=== PATIENT | female | born 1940 | race Caucasian/White ===

== ENCOUNTER 2017-02-09 09:40 | Inpatient (IN) | payer MEDICARE ==
[~2017-02-09] VITALS: Ht 162.6 cm; Wt 66.7 kg
[2017-02-09 09:48] VITALS: BP 115/72; PULSE 85; RESP 16; O2SAT 100
[2017-02-09] MEDS ORDERED: METF500T4 PO (10:20)
[2017-02-09] MEDS ORDERED: HYDR25TA4 PO (10:20)
[2017-02-09] MEDS ORDERED: BENA40TA2 PO (10:20)
[2017-02-09] MEDS ORDERED: LIP40 PO (10:20)
[2017-02-09] MEDS ORDERED: CARV12.5 PO (10:20)
[2017-02-09] MEDS ORDERED: ASPI-973 PO (10:20)
[2017-02-09] MEDS ORDERED: AMLO2.5T PO (10:20)
[2017-02-09] MEDS ORDERED: 0.9% Sodium Chloride 1,000 ML IV ONE ×2 (10:42→14:50)
[2017-02-09] MEDS ORDERED: Iohexol 300 mg/mL 30 mL Inj PO ONE (10:45)
[2017-02-09] MEDS ORDERED: Ondansetron 2 mg/mL 2 mL Inj IVPUSH ONE (10:45)
--- NOTE | 2017-02-09 10:47 | ED.REPORT ---
HPI-Abd Pain F 40 and Over Date of Service Feb 09, 2017 ED Provider: Bill Joseph MD A 76 year old female with h/o HTN and diabetes presents to the ED c/o left sided abdominal pain that wraps into her back onset end of November after bronchitis infection. Eating or lying on back can exacerbate the pain. She went on clear diet after the bronchitis infection, which relived the pain for some time, however the pain has been coming back intermittently since she stopped the clear diet a few months ago. Associated difficulty sleeping, weight loss (12 pounds lost since November), chills, and loss of appetite. She denies any vomit, nausea, or dysuria. She has been taking stool softener with 3 BMs today. She reports that she has not been sick in years. Nursing Notes Stated Complaint: ABDOMINAL/BACK Chief Complaint: General Complaint Nursing Notes Reviewed: Yes ([employer], [employer] reconciled) Allergies: Coded Allergies: No Known Allergies (Unverified , 02/09/17) Scheduled Amlodipine (Amlodipine) 2.5 Mg Tablet 2.5 MG PO DAILY Aspirin (Aspirin) 81 Mg Tablet 162 MG PO BID Atorvastatin (Lipitor) 40 Mg Tablet 40 MG PO DAILY Carvedilol (Coreg) 12.5 Mg Tablet 12.5 MG PO BID Hydrochlorothiazide (Hydrochlorothiazide) 25 Mg Tablet 25 MG PO DAILY Metformin (Metformin) 500 Mg Tablet 500 MG PO BID Miscellaneous Medications Benazepril (Benazepril) 40 Mg Tablet 40 MG PO General Time Seen by MD: 10:41 Chief Complaint Abdominal pain Hx Obtained From: Patient Arrived By: Walk-in Sudden in Onset?: No Onset Occurred: More than a week ago... (3 months, november) Symptom Duration: Intermittent Progression since Onset: Intermittent Radiation: : Back Severity: Current: Moderate Severity: Maximum: Severe Recent Healthcare: No recent doctor visit Similar Sx Previous: No Past Medical History Past Medical History Hypertension Diabetes type II Hyperlipidemia History of DVT or blood clot of some sort in the leg - curly on aspirin therapy only. reports blood clot 1997 and 2012, both "from traveling" bronchitis in november Denies Hx pancreatitis Past Surgical History Reports: Hysterectomy, Denies: Appendectomy, Cholecystectomy Social History Alcohol Use: "Social" (no drink in 6 months) Ambulatory Status Independent Review of Systems Difficulty sleeping Loss of appetite Constitutional: Reports: Chills, Recent wt loss GI: Reports: Abdominal pain, Denies: Constipation, Nausea, Vomiting Female: Denies: Dysuria Musculoskeletal: Reports: Back pain Complete sys rev & neg: except as marked. Physical Exam Vital Signs Vital Signs (First) Date Time Temp Pulse Resp B/P Pulse Ox O2 Delivery O2 Flow Rate FiO2 02/09/17 09:48 36.2 85 16 115/72 100 Room Air Initial VS: Reviewed, Vital signs normal General/Constitutional: Awake, Alert, No acute distress Mildly uncomftorable. Respiratory / Chest: Atraumatic, Breath sounds NL, Breath sounds = bilat, No respiratory distress, No rales, No rhonchi, No wheezing Cardiovascular: Heart rate NL, Regular rhythm, Heart sounds NL, No gallop, No murmurs, No rubs Tenderness/Guarding/Rebound: Positive: Tender epigastric (trace epigastric tenderness) No pain in RUQ. Back: Atraumatic, Inspection NL Head / Eyes: Atraumatic, Normocephalic, PERRL, EOMI ENT: Atraumatic, Airway patent Skin: Atraumatic, Color NL, Warm, Dry Neurologic: Oriented X3, Speech NL Interpretation & Diagnostics Lab Results Interpretation Result Diagram: 02/09/17 1135 02/09/17 1135 Test 02/09/17 11:35 White Blood Count 8.0th/mm3 (3.8-10.1) Red Blood Count 4.20mil/mm3 (3.90-5.20) Hemoglobin 13.5g/dL (12.0-15.6) Hematocrit 37.3% (35.0-46.0) Mean Corpuscular Volume 88.8fL (81-100) Mean Corpuscular Hemoglobin 32.1pg (27.0-35.0) Mean Corpuscular Hemoglobin Concent 36.2% (32.0-37.0) Red Cell Distribution Width 11.5% (12.3-15.4) Platelet Count 283bil/L (150-400) Neutrophils (%) (Auto) 73.3% (40-74) Lymphocytes (%) (Auto) 17.7% (14-46) Monocytes (%) (Auto) 7.8% (4-12) Eosinophils (%) (Auto) 0.6% (0-5) Basophils (%) (Auto) 0.3% (0-3) Sodium Level 121mEq/L (134-144) Potassium Level 3.0mEq/L (3.5-5.2) Chloride Level 81mEq/L (97-108) Carbon Dioxide Level 21mmol/L (18-29) Blood Urea Nitrogen 29mg/dL (8-27) Creatinine 1.00mg/dL (0.57-1.00) Estimat Glomerular Filtration Rate 77mL/min (>59) Glucose Level 149mg/dL (60-99) Calcium Level 11.2mg/dL (8.5-10.1) Magnesium Level 1.6mg/dL (1.6-2.6) Total Bilirubin 1.2mg/dL (0.0-1.2) Aspartate Amino Transf (AST/SGOT) 23U/L (0-50) Alanine Aminotransferase (ALT/SGPT) 20U/L (0-32) Alkaline Phosphatase 54U/L (25-165) Total Protein 7.4g/dL (6.4-8.4) Albumin 4.4g/dL (3.4-5.0) Lipase 49U/L (13-60) Lab Results Interpretation: CBC normal CMP mild hypokalemia moderate/severe hyponatremia Lipase normal CT Abd / Pelvis Interpretation IMPRESSION: 1. Primary pancreatic malignancy, which is exophytic and demonstrates vascular encasement, as described above. 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 Pancreatic ductal dilatation is present. 2. Pathologic periceliac adenopathy, which demonstrates vascular encasement as described above. 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 Dictated by: Brunilda Arias M.D. on 02/09/2017 at 13:48 Approved by: Brunilda Arias M.D. on 02/09/2017 at 13:57 Interpretation / Wet Read by: Interpret - Radiologist Re-Eval/Medical Decision Med Decision/Clinical Course This is a 76-year-old female presents with increasing epigastric back/back pain with worsening with eating this progressed to the point she has not had 10 pounds of weight loss, increasing weakness, she could not sleep last night due to the discomfort, has been trying to get into PCP unsuccessfully and was advised to try get to urgent cares that she get an expedited PCP and they sent her to the ED. Fevers chills prior history of some her symptoms is concerned about the possibly pancreatitis. She does not drink alcoho beyond rare wine. He has no previous history of gallbladder pathology or liver pathology. She has had no problems with pancreatitis in the past. Exam she appears fatigued, mildly dehydrated, but her abdominal exam essentially benign without focal tenderness or guarding. No clinical evidence of acute surgical abdomen is evident but she has pointed area and epigastrium for the source of her discomfort. Workup was pursued, the labs are no poor dehydration with severe hyponatremia and mild hypokalemia, and the imaging workup is suggestive of a primary pancreatic malignancy. Given her level of dehydration, electrolyte abnormalities, and need for pain management recommending admission. Hospitalist has been paged, and oncology consult is patient is being requested Source of Hx: Old records (not in EMR) Consultation #1: Referral / Consult Name: Abdelrahman Marr MD Call Returned at: 14:54 Traffic Operator: Agrees with eval Consultation #2: Referral / Consult Name: Robert Givens MD Consulted With: Hospitalist Traffic Operator: Accepts admit Differential Diagnosis: Positive: Malignancy (primary pancreatic), Negative: Abdominal aortic aneurysm, Cholangitis, Cholecystitis, Esophageal rupture, Gun shot wound abdomen, Peritonitis, Stab wound abdomen Counseled Regarding: Diagnosis, Lab results, Need for follow-up, Need for admission Discharge & Departure Primary Impression: Pancreatic cancer Additional Impressions: Abdominal pain Dehydration Hyponatremia Hypokalemia Disposition: ADMITTED TO HOSPITAL Discharge Condition All VS Reviewed: Yes Condition: Stable Referrals: MARYCRUZ EDSupervising Provider for APC: MARYCRUZ Wetzel Attestation Portions of this note were transcribed by Jett Friedman. I, Dr. Joseph personally performed the history, physical exam and medical decision-making; I reviewed and confirmed the accuracy of the information in the transcribed note. Signed by: Rashard Alejandro, 02/09/2017, [id number]. copies to: Bill Servin MD Feb 09, 2017 10:47 Jett Friedman Feb 09, 2017 10:50
[2017-02-09] MEDS ORDERED: HYDROmorphone 1 mg/mL Inj IVPUSH ONE (11:25)
[2017-02-09 11:49] VITALS: BP 132/68; PULSE 89; RESP 26; O2SAT 98
[2017-02-09 11:49] LABS: BASOPHILS % (AUTO) 0.3 % (0-3); EOSINOPHILS % (AUTO) 0.6 % (0-5); MONOCYTES % (AUTO) 7.8 % (4-12); Mean Corpuscular Hemoglobin 32.1 pg (27.0-35.0); Mean Corpuscular Volume 88.8 fL (81-100); NEUTROPHILS % (AUTO) 73.3 % (40-74); Platelet Count 283 bil/L (150-400)
[2017-02-09 12:22] LABS: Magnesium 1.6 mg/dL (1.6-2.6)
--- NOTE | 2017-02-09 13:58 | DRSVH ---
PROCEDURE: CT ABDOMEN AND PELVIS WITH CONTRAST ([id number]) INDICATIONS: LLQ Abd Pain, weight loss, anorexia x1 month TECHNIQUE: After the administration of oral and intravenous contrast, 5 mm thick sections acquired from the diap hragms to the symphysis. 5 mm thick coronal and sagittal reformats were performed. For radiation do se reduction, the following was used: automated exposure control, adjustment of mA and/or kV accordi ng to patient size. COMPARISON: None. FINDINGS: Image quality: Excellent. ABDOMEN: Lung bases: Right posterior lung base scarring. Lung bases are otherwise clear. Heart size is luke l. Solid organs: Liver and spleen are normal in size and enhancement. Gallbladder is within normal baker its. Biliary system is non-dilated. There is an ill-defined region of hypoenhancement within the inf erior aspect of the pancreatic body/neck junction, which is exophytic and extends inferiorly into the peripancreatic soft tissues. There is associated interruption of the pancreatic duct within the panc reatic neck, with associated pancreatic ductal dilatation within the body and tail, with a maximal di ameter of roughly 5 mm.. The mass demonstrates encasement and severe consequent narrowing of the supe rior aspect of the superior mesenteric vein. There is partial encasement, with moderate to high-grade narrowing of the central aspect of the splenic vein. Additionally, the exophytic portion of the mass contacts the anterior margin of the proximal superior mesenteric artery. No adrenal nodules. Kidney s are normal in size and enhancement, without hydronephrosis. Peritoneum and bowel: A small hiatal hernia is present. Stomach, small bowel, and colon loops are nor mal in caliber and wall thickness. No free fluid or air. Nodes and vessels: There is a 17 mm diameter paco-celiac lymph node, which encases the celiac artery, as well as the proximal aspects of the common hepatic and splenic arteries. There is moderate to sev ere narrowing of the distal celiac and proximal common hepatic arteries. Aorta is within normal limit s. There is calcification within the lumen of the infrarenal IVC. The common, internal, and external iliac veins are atrophic and demonstrate scattered calcifications. As described above, there is sever e narrowing of the peripancreatic segment of the superior mesenteric vein. There are multiple consequ ent portosystemic collateral vessels within the left hemiabdomen. Miscellaneous: No ventral hernias. PELVIS: Genitourinary: Bladder wall thickness is normal. Miscellaneous: No inguinal hernias or adenopathy. Collateral venous structures within the anterior subcutaneous fat. Bones: No suspicious bony lesions. No vertebral body compression fractures. IMPRESSION: 1. Primary pancreatic malignancy, which is exophytic and demonstrates vascular encasement, as describ ed above. There is associated superior mesenteric vein stenosis with consequent portosystemic collate ral vessels. Pancreatic ductal dilatation is present. 2. Pathologic periceliac adenopathy, which demonstrates vascular encasement as described above. Chron ic thrombosis of the infrarenal IVC and iliac veins. Dictated by: Brunilda Arias M.D. on 02/09/2017 at 13:48 Approved by: Brunilda Arias M.D. on 02/09/2017 at 13:57
[2017-02-09] MEDS ORDERED: Potassium Chloride 20 mEq SR Tablet PO ONE (14:55)
[2017-02-09] MEDS ORDERED: Alum-Mag Hydrox-Simeth 30 mL Suspension PO PRN (15:25)
[2017-02-09] MEDS ORDERED: Polyethylene Glycol (PEG) 17 Gm Powder PO PRN (15:25)
[2017-02-09] MEDS ORDERED: Glucose 40% Oral Gel 15 Gm Tube PO PRN (15:55)
[2017-02-09 16:15] LABS: INR 1.05 ratio
[2017-02-09 16:55] VITALS: BP 132/86; PULSE 76; RESP 20; O2SAT 98
[2017-02-09] MEDS: Insulin LISPRO 300 Unit/3 mL Inj SUBQ SCH ×2 (17:30→22:00)
[2017-02-09 17:54] VITALS: BP 149/72; PULSE 76; RESP 16; O2SAT 98
[2017-02-09] MEDS: 0.9% Sodium Chloride 1,000 ML IV SCH (17:54)
[2017-02-09] MEDS: Heparin 5,000 Unit/mL Inj SUBQ SCH (17:55)
[2017-02-09] MEDS: HYDROmorphone 1 mg/mL Inj IVPUSH PRN (19:33)
--- NOTE | 2017-02-09 19:34 | NUR ---
Admit Pt admitted to [facility], 1022, at ~1745. Arrived via gurney ambulated to bed. A&Ox3, PORTER, states pain but tolerating at this time, IV SL, Eating dinner, oriented to room/call light, Family present with belongings, Unable to perform physical assessment as MD present. Cook page at change of shift to MD re: pt home meds, sleep aide and pain medication - orders received post giving NOC RN report. Pt aware - care continues.
[2017-02-09 19:49] VITALS: BP 120/65; PULSE 79; RESP 18; O2SAT 96
--- NOTE | 2017-02-09 19:51 | CCS CONS ---
[facility] [address] [place] [id number] MEDICAL ONCOLOGY NEW PATIENT REPORT PATIENT: LANEY ANNA : 1940 MR#: [id number] DATE: 02/09/2017 JOB ID: [id number] MEDICAL ONCOLOGY CONSULTATION: DATE: 02/09/2017 REQUESTING PHYSICIAN: Bill Joseph MD from the Emergency Department. REASON FOR CONSULTATION: Pancreatic mass radiographically consistent with pancreatic cancer. HISTORY OF PRESENT ILLNESS: This patient is a 76-year-old lady who is here with her and daughter and has a history of hypertension and diabetes, and has been having epigastric pain for about two months with worsening when laying on her back or eating, and the pain radiates also laterally to the back. She did not seek any medical attention and has attributed that to different explanations, but it got to the point that she could not sleep and has lost about 15 pounds since November. Her appetite is very poor and her stools have gotten softer. She came to the emergency department today with a CAT scan of the abdomen and pelvis with contrast in the emergency department being performed. I have personally reviewed the CAT scan with Dr. Mamta Ozuna of Radiology. It shows a large ill-defined mass in the body and neck of the pancreas with exophytic extension. The mass appears to arise from within the pancreatic parenchyma with secondary distal ductal dilatation of the pancreas within the body and tail supporting a pancreatic primary. The mass encases and severely narrows the superior mesenteric vein and partial encasement and moderate narrowing of the central aspect of the splenic vein. The exophytic portion of the mass touches the anterior margin of the superior mesenteric artery but does not encase it. There is celiac lymph node enlargement measuring 1.7 cm encasing the celiac artery as well as common hepatic and splenic arteries in the celiac access causing some narrowing in the distal aspect of those vessels. There is evidence of chronic thrombus in the infrarenal aspect of the IVC and portosystemic collateral in the left hemiabdomen. No evidence of liver metastases. No ascites. PAST MEDICAL HISTORY: Hypertension, diabetes and hyperlipidemia. She reports that she has had a "blood clot" in 1997 and 2012. SOCIAL HISTORY: She lives in [facility]. Her daughter has a house on the same property. She has no history of smoking or alcoholism and no history of chronic pancreatitis. PAST SURGICAL HISTORY: Hysterectomy and appendectomy as well as cholecystectomy. REVIEW OF SYSTEMS: Positive for weight loss, epigastric and posterior back pain and symptoms of asthenia. No jaundice. No vomiting. HOME MEDICATIONS: 1. Atorvastatin. 2. Baby aspirin. 3. Carvedilol 12.5 mg b.i.d. 4. Aspirin 81 mg. 5. Metformin. 6. Hydrochlorothiazide 25 mg. 7. Amlodipine 2.5 mg daily. LABORATORY DATA: Labs show a white count 8.0, hemoglobin 13.5, platelets 283. Chemistry shows severe hyponatremia with a sodium of 121, potassium 3.0, BUN 29, creatinine 1.0. Normal LFTs. Calcium elevated at 11.2. PHYSICAL EXAMINATION: Vitals are stable. The patient afebrile. Blood pressure 149/72. A very pleasant lady. Mentally agile. Lungs clear to auscultation. Heart regular. Abdomen is soft. Extremities show no edema. No jaundice. No palpable adenopathy. ASSESSMENT AND PLAN: A 76-year-old lady with history of hypertension and diabetes with two month history of progressive epigastric and posterior back pain, weight loss and asthenia that made her come to the emergency department today with CT scan that I reviewed with Dr. Ozuna of Radiology showing a very concerning mass in the body of the pancreas with the above-mentioned compression effect on the splenic vein as well as significant narrowing and encasement of the superior mesenteric vein with a mass extending beyond the pancreas. In addition, there is adenopathy in the celiac access causing encasement of the celiac artery and narrowing of the same as well as the common hepatic vein. There is no evidence of liver metastases or ascites. The radiographic appearance is consistent with a primary pancreatic malignancy and preliminary stage based on the current CT scan would be at least a T3/? T4, N1 disease. At this point, the malignancy appears unlikely to be resectable and would require completion of staging workup and most likely neoadjuvant therapy and then re-evaluation for resectability. I discussed with the family that several additional tests need to be performed. I would recommend: 1. Please consult Dr. Hayes of Gastroenterology for expedited endoscopic ultrasound for more accurate the endosonographic staging as well as EUS guided biopsy for tissue diagnosis. 2. CT of the chest without contrast to rule out metastases and an independent primary lung process given the severity of hyponatremia. 3. CEA and CA 19-9 tumor markers as well as intact parathyroid hormone for workup of hypercalcemia. These tests were already ordered by me today. 4. More adequate pain control utilizing long-acting morphine with MS Contin 15 mg every 12 hours and Vicodin p.r.n. for breakthrough pain to be able to manage the pain as an outpatient. I have given contact information to the family for me to follow up as an outpatient. She likely can be discharged after adequate pain control and some hydration has been performed over the weekend with EUS to be performed early next week if possible. I can then also refer her to Multidisciplinary Pancreatic [facility] at [facility] for formal consultation by Surgery regarding advisability of diagnostic laparoscopy, peritoneal washing and likely initiation first with neoadjuvant chemotherapy and reassessment.
--- NOTE | 2017-02-09 20:35 | DRSVH ---
PROCEDURE: CT CHEST WITHOUT CONTRAST ([id number]) INDICATIONS: Pancreatic mass staging TECHNIQUE: Noncontrast 5 mm thick sections acquired from the pulmonary apices to the posterior costophrenic angl es. 7 mm thick coronal and sagittal MIP reformats were then acquired. For radiation dose reduction, the following was used: automated exposure control, adjustment of mA and/or kV according to patient size. COMPARISON: None. FINDINGS: Image quality: Excellent. Lungs and pleura: No acute air space opacities. 8mm diameter nodule within the right posterior apex . No pleural effusions or pneumothorax. Central and peripheral airways are patent and normal in joão nai. Mediastinum: Heart size is normal. There is calcification of the coronary vasculature. No pericardi al effusion. No mediastinal adenopathy by size criteria. Thoracic aorta and central pulmonary arter ies are normal in size. Esophagus is normal in caliber. There is a small hiatal hernia. Bones and chest wall: No suspicious bony lesions. No vertebral body compression fractures. No axil mark or supraclavicular adenopathy by size criteria. Thyroid gland is within normal limits. Abdomen: Visualized upper abdominal solid organs and bowel loops appear normal in the absence of con trast. IMPRESSION: 1. Indeterminate right apical nodule. 2. Small hiatal hernia. Dictated by: Brunilda Arias M.D. on 02/09/2017 at 20:32 Approved by: Brunilda Arias M.D. on 02/09/2017 at 20:33
--- NOTE | 2017-02-09 23:38 | PCM.HPMED ---
Subjective Date of Service Feb 09, 2017 Primary Provider: Admitting Physician: Primary Care Physician: Richie Cnaas MD Attending Physician: Admit Status: From the Emergency Department, Full Admit, Non-Telemetry Chief Complaint: Acute epigastric pain History of Present Illness: Suzanne Davenport is a 76 year old female with Hypertension, Diabetes, History of DVT who presents to [facility] emergency department c/o left sided abdominal pain. Epigastric pain, persistent, ache in character that wraps into her back onset end of November after bronchitis infection. Exacerbating factors includes Eating or lying on back. She went on clear diet after the bronchitis infection, which relived the pain for some time, however the pain has been coming back intermittently since she stopped the clear diet a few months ago. Associated symptoms includes difficulty sleeping, weight loss (12 pounds lost since November), chills, and loss of appetite, everything taste metallic. She denies any vomit, nausea, or dysuria. She has been taking stool softener with 3 BMs today. She reports that she has not been sick in years and very active. Patient knows about medical conditions and suspected all along she may have pancreatitis. She is also diabetic and noted it being uncontrolled since November. Typical fasting glucose < 130 now its consistently > 200. She is compliant with all her medications Case discussed with Dr Joseph, CT Abdomen incidentally showed pancreatic cancer. Fluids initiated, Dr Marrero was consulted with plans to admit patient Review of Systems: Pertinent positives as noted in HPI. All other systems were reviewed and are negative Allergies Coded Allergies: No Known Allergies (Unverified , 02/09/17) Home Medications From [facility], NOT YET CONFIRMED Suzanne Davenport [id number] 1940 02/05/2017 09:00 AM 10/19 amlodipine 2.5 mg tablet take 1 tablet by oral route every day aspirin 325 mg tablet take 1 tablet by oral route twice daily atorvastatin 40 mg tablet take 1 tablet by oral route every day benazepril 40 mg tablet take 1 tablet by oral route every day carvedilol 25 mg tablet take 1 tablet by oral route 2 times every day with food Cinnamon 500 mg capsule Fish Oil [place] 3-6-9 300 mg-1,000 mg capsule,delayed release hydrochlorothiazide 25 mg tablet take 1 tablet by oral route every morning metformin 500 mg tablet take 1 tablet by oral route 2 times every day with morning and evening meals Multi-Day tablet tramadol 50 mg tablet take 1 tablet by oral route every 6 hours as needed PMH Hypertension Hyperlipidemia Pre diabetes Chronic kidney disease History of DVT, on Coumadin for 2 years now off . Surgical History Hysterectomy Addenoidectomy and Tonsillectomy Family History Father was diabetic and Coronary artery disease Mother had Stroke and Hypertension Social History Hx Alcohol Use: Yes (VERY SELDOM) Hx Substance Use: No Hx Tobacco Use: No Smoking Status: Never Smoker Living Arrangement: with Family (with her ) Exam Vital Signs Vital Sign - Last Date Time Temp Pulse Resp B/P Pulse Ox O2 Delivery O2 Flow Rate FiO2 02/09/17 11:49 89 26 132/68 98 Room Air 02/09/17 09:48 36.2 Exam General: Alert, Oriented X3, Cooperative, No acute Distress Eyes: PERRLA, Scleral Anicteric Mouth: Mouth Normal, Mucous Membranes Moist/[place] Neck: Supple, no Thyromegaly, trachea central. Chest & Lungs: Clear to auscultation & percussion, No adventitious breath sounds, no crackles, no wheeze Cardiovascular: Normal S1, Normal S2, No Murmurs/Rubs/Gallops, Regular Rate/ Rhythm, (No JVD, no peripheral edema) Pulses: Radial (present and equal), Dorsalis Pedi (present and equal) Abdomen: Soft, Non-tender, Non-distended, Normoactive bowel tones. Musculoskeletal: Unremarkable. Normal range of motion, no swollen or erythematous joints. lower back tenderness on palpation Extremities: No edema, no cyanosis, no clubbing. Skin: No rashes. Warm and dry, no erythematous areas Neurological: Grossly neurologically intact, Normal Speech, Sensation Intact Lymphatic: Lymph nodes Cervical and Axillary not palpable. Lab and Diagnostics Labs Laboratory Tests Test 02/09/17 11:35 White Blood Count 8.0th/mm3 (3.8-10.1) Red Blood Count 4.20mil/mm3 (3.90-5.20) Hemoglobin 13.5g/dL (12.0-15.6) Hematocrit 37.3% (35.0-46.0) Mean Corpuscular Volume 88.8fL (81-100) Mean Corpuscular Hemoglobin 32.1pg (27.0-35.0) Mean Corpuscular Hemoglobin Concent 36.2% (32.0-37.0) Red Cell Distribution Width 11.5% (12.3-15.4) Platelet Count 283bil/L (150-400) Neutrophils (%) (Auto) 73.3% (40-74) Lymphocytes (%) (Auto) 17.7% (14-46) Monocytes (%) (Auto) 7.8% (4-12) Eosinophils (%) (Auto) 0.6% (0-5) Basophils (%) (Auto) 0.3% (0-3) Sodium Level 121mEq/L (134-144) Potassium Level 3.0mEq/L (3.5-5.2) Chloride Level 81mEq/L (97-108) Carbon Dioxide Level 21mmol/L (18-29) Blood Urea Nitrogen 29mg/dL (8-27) Creatinine 1.00mg/dL (0.57-1.00) Estimat Glomerular Filtration Rate 77mL/min (>59) Glucose Level 149mg/dL (60-99) Calcium Level 11.2mg/dL (8.5-10.1) Magnesium Level 1.6mg/dL (1.6-2.6) Total Bilirubin 1.2mg/dL (0.0-1.2) Aspartate Amino Transf (AST/SGOT) 23U/L (0-50) Alanine Aminotransferase (ALT/SGPT) 20U/L (0-32) Alkaline Phosphatase 54U/L (25-165) Total Protein 7.4g/dL (6.4-8.4) Albumin 4.4g/dL (3.4-5.0) Lipase 49U/L (13-60) Result Diagram: 02/09/17 1135 02/09/17 1135 X-Rays, CTs and MRIs CT ABDOMEN AND PELVIS WITH CONTRAST 02/09 IMPRESSION: 1. Primary pancreatic malignancy, which is exophytic and demonstrates vascular encasement, as described above. 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 Pancreatic ductal dilatation is present. 2. Pathologic periceliac adenopathy, which demonstrates vascular encasement as described above. 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 Dictated by: Brunilda Arias M.D. on 02/09/2017 at 13:48 Approved by: Brunilda Arias M.D. on 02/09/2017 at 13:57 Assessment & Plan Suzanne Davenport is a 76 year old female with Hypertension, Diabetes, History of DVT who presents to [facility] emergency department c/o left sided abdominal pain. 1 Pancreatic Cancer. Present on admission Incidental finding on CT scan with constellation of associated symptoms of unintentional weight loss, depressed appetite and abdominal and back pain Mass originated from within the pancreatic parenchyma with secondary distal ductal dilatation of the pancreas within the body and tail supporting a pancreatic primary. The mass encases and severely narrows the superior mesenteric vein and partial encasement and moderate narrowing of the central aspect of the splenic vein. - Dr Marrero consulted - staging will be attempted as well as tumor markers will be obtained 2 Acute Hypochloremic Hyponatremia. Present on admission Suspect likely due to Hypovolemia as well as due to diuretics - holding Hydrochlorothiazide - serum and urine osmolality, Urine sodium - consult with Dr Gagnon, Nephrology 3 Acute Hypercalcemia. Present on admission Due to dehydration with consideration for Hypercalcemia of malignancy - Iv fluids resuscitations - checking PTH 4 Diabetes type 2 - low correction Lispro algorithm - checking A1c - holding Metformin while in house 5 Hypertension - continue Benzapril 40 mg daily and Amlodipine 2.5 mg daily 6 Hyperlipidemia - continue statin - Acetaminophen as needed for mild pain/fever/headache - Bowel regimen as needed - Antiemetic as needed Patient admitted under inpatient status with expected length of stay > 2 midnights for severity of present symptoms, complexities of treatment plan and risk for adverse event . Resuscitation Status: CPR: Attempt Resuscitation Robert Givens MD Feb 09, 2017 15:27 Robert Givens MD Feb 09, 2017 15:27
[2017-02-10 00:06] VITALS: BP 110/59; PULSE 66; RESP 16; O2SAT 96
[2017-02-10] MEDS: HYDROmorphone 1 mg/mL Inj IVPUSH PRN ×4 (00:07→21:14)
[2017-02-10] MEDS: Heparin 5,000 Unit/mL Inj SUBQ SCH ×3 (00:08→16:15)
[2017-02-10] MEDS: 0.9% Sodium Chloride 1,000 ML IV SCH (02:16)
[2017-02-10 03:47] LABS: APPEARANCE,URINE CLOUDY (CLEAR,HAZY); COLOR,URINE YELLOW (YELLOW); OCCULT BLOOD,URINE NEGATIVE (NEGATIVE)
[2017-02-10 03:51] LABS: OSMOLALITY, URINE 493 mOs/kH2O (250-1200)
[2017-02-10 04:22] VITALS: BP 156/67; PULSE 75; RESP 18; O2SAT 97
--- NOTE | 2017-02-10 05:40 | NUR ---
Pain/Activity Patient c/o 04/23 LUQ pain radiating to back. Patient reported relief with PRN IV Dilaudid. Up to BSC independently, steady on feet, using call light for needs.
[2017-02-10] MEDS: Ondansetron 2 mg/mL 2 mL Inj IVPUSH PRN ×4 (06:27→20:05)
[2017-02-10] MEDS: Insulin LISPRO 300 Unit/3 mL Inj SUBQ SCH ×4 (09:04→22:00)
[2017-02-10 09:07] VITALS: BP 168/74
[2017-02-10 09:59] VITALS: PULSE 63; RESP 16; O2SAT 97
--- NOTE | 2017-02-10 13:56 | NUR ---
Social Work- Initial Assessment Data: See Initial Assessment. Pt is a 76 year old female admitted 02/09/17 for pancreatic malignancy per H&P. Pt's insurance is [employer] and [employer]. Pt's PCP is Richie Canas MD. SW met with pt at bedside regarding discharge plan, SW role explained. Pt alert and oriented x3. Pt resides at home with her where she is independent at base. Pt uses no DME and drives. Pt has no HH or SNF history. Pt has no LTC or VA benefits. Pt's NOK is Scott Davenport, . Pt has no DPOA at this time. Pt states she is going to complete this next week. Pt to discharge home with to transport via POV. No anticipated discharge needs. SW will continue to follow. Assessment: Pt who is independent at base. Plan: Pt to discharge home with to transport via POV. No anticipated discharge needs. SW will continue to follow. CHANEL Becker Addendum: 02/10/17 at 1400 by SAM NGUYEN SS Amended: Links added.
--- NOTE | 2017-02-10 14:47 | CONS ---
[address] [address] CONSULTATION REPORT PATIENT: LANEY ANNA : 1940 MR#: [id number] ADMIT: 02/09/2017 JOB ID: [id number] DATE OF SERVICE: 02/10/2017 GASTROENTEROLOGY CONSULTATION: REASON FOR CONSULTATION: Pancreatic mass. PHYSICIAN REQUESTING CONSULTATION: Dr. Robert Givens. HISTORY OF PRESENTING ILLNESS: The patient is a 76-year-old woman who reports that she was in good health up until July of last year when she was diagnosed with type 2 diabetes. She then reports being started on medications for diabetes and then starting a low-carbohydrate diet. She was apparently well up until November of this year when she reports that she was having some breathing difficulties and she thought that she may have bronchitis and was seen at Urgent Care. She was prescribed antibiotics which she did not want to take and treated herself with mucolytics. Following this, she reports she slowly recovered, but then two months ago, she began developing epigastric pain. The epigastric pain was not associated with any nausea or vomiting. The pain did radiate into the back. She initially thought she may have pulled a muscle and, therefore, took NSAIDs which gave her relief. She then saw her primary care provider who had recommended taking NSAIDs for possible pulled muscle. However, as her symptoms of pain worsened she felt that something was not right and, therefore, came to the emergency department for further evaluation yesterday. In addition, she does report an approximately 20 pounds weight loss but she thought that this may have been secondary to her low-carbohydrate diet which her is also on and he has lost 20 pounds so she did not think that it was unusual for to lose 20 pounds. On admission to the emergency department, she had labs done which revealed a normal CBC. Her LFTs were normal as was a lipase of 49. Her electrolytes, however, showed a serum sodium of 121, potassium of 3.3, chloride of 81, CO2 of 21, BUN of 29 and creatinine of 1.0 with a glucose of 149. Her PT was 11.2, INR of 1.05. She subsequently had a CT of the abdomen which showed that there was an ill-defined region of hypoenhancement within the inferior aspect of the body and neck of the pancreas which appeared to be exophytic and extending into the peripancreatic soft tissue. There was also interruption of the pancreatic duct within the pancreatic neck. There is associated pancreatic ductal dilation within the body and tail and this mass demonstrates encasement of the superior aspect of the superior mesenteric vein. There appears to be partial encasement with moderate to high-grade narrowing of the central aspect of the splenic vein and then the exophytic portion of the mass abuts the anterior portion of the superior mesenteric artery. Additionally there is a 17 mm periceliac lymph node which encases the celiac artery. There is also [id number] narrowing of the distal celiac and proximal common hepatic arteries. ASSESSMENT/PLAN: A 76-year-old woman with recent diagnosis of type 2 diabetes, presenting with a two-month history of epigastric pain with radiation to the back, weight loss and CT findings with a pancreatic mass with extension locally to the superior mesenteric vein, celiac access and the common hepatic vein appears to be involved also. There is no evidence of any biliary involvement. Based on the CT imaging I do not belive her tumor is currently resectable. I discussed with the patient regarding endoscopic ultrasound for tissue diagnosis and staging and she is agreeable to proceed. My office will contact her next week to schedule outpatient EUS. In the meantime, I would continue pain medicines to ensure that she had adequate control of her pain. Thank you for allowing me to participate in the patient's care. If you should have any further questions, please do not hesitate to contact me. LAURENCE
[2017-02-10 15:11] VITALS: BP 122/72; PULSE 71; RESP 18; O2SAT 98
--- NOTE | 2017-02-10 18:02 | NUR ---
Pain/Nausea P: 1mg IV Dilaudid given this morning for pain control, effective. Pt denied pain for 9 hours. She experienced nausea with emesis despite 4mg Zofran, additional 4mg's given. Pain returned this afternoon starting in her L back at a 4/10. I: 1mg PO Dilaudid given with 4mg Zofran. Ineffective pain control after 45 minutes with pain beginning to radiate around her abdomen, she rated it a 5/10. 0.25mg IV Dilaudid given. E: Effective, pt reports pain is decreasing to a satisfactory level and denies nausea.
[2017-02-10 20:14] VITALS: BP 130/72; PULSE 69; RESP 16; O2SAT 98
--- NOTE | 2017-02-10 23:28 | PCM.PNMED ---
Subjective Date of Service Feb 10, 2017 Subjective Patient seen and examined. Feeling better but still have pain issue. No fever or chills. Still poor appetite Exam Vital Signs Vital Sign - Last Date Time Temp Pulse Resp B/P Pulse Ox O2 Delivery O2 Flow Rate FiO2 02/10/17 04:22 36.7 75 18 156/67 97 Room Air Intake and Output 02/09/17 02/09/17 02/10/17 Cumulative From/Thru 15:00 23:00 07:00 02/09/17 09:48 - 02/10/17 06:06 Intake Total 1636 ml 1436 ml 3072 ml Output Total 0 ml 1400 ml 1400 ml Balance 1636 ml 36 ml 1672 ml Intake Oral 636 ml 300 ml 936 ml IV Total 1000 ml 1136 ml 2136 ml Output Urine Total 0 ml 1400 ml 1400 ml # Bowel Movements 0 0 Exam General: Alert, Oriented X3, Cooperative, No acute Distress Eyes: PERRLA, Scleral Anicteric Mouth: Mouth Normal, Mucous Membranes Moist/[place] Neck: Supple, no Thyromegaly, trachea central. Chest & Lungs: Clear to auscultation & percussion, No adventitious breath sounds, no crackles, no wheeze Cardiovascular: Normal S1, Normal S2, No Murmurs/Rubs/Gallops, Regular Rate/ Rhythm, Murmur, Other (No JVD, no peripheral edema) Pulses: Radial (present and equal), Dorsalis Pedi (present and equal) Abdomen: Soft, Non-tender, Non-distended, Normoactive bowel tones. Musculoskeletal: Unremarkable. Normal range of motion, no swollen or erythematous joints Extremities: No edema, no cyanosis, no clubbing. Skin: No rashes. Warm and dry, no erythematous areas Neurological: Grossly neurologically intact, has generalized weakness, Normal Speech, Sensation Intact Lymphatic: Lymph nodes Cervical and Axillary not palpable. IVs and Medications Medications Reviewed: Medications were reviewed in detail Lab and Diagnostics Laboratory Tests Test 02/10/17 03:15 02/10/17 07:35 Urine Color Yellow (YELLOW) Urine Appearance Cloudy (CLEAR,HAZY) Urine pH 6.0 (5.0-8.0) Urine Specific [place] 1.015 (1.003-1.035) Urine Protein Negativemg/dL (NEG,TRACE) Urine Glucose (UA) 100mg/dL (NEGATIVE) Urine Ketones Negativemg/dL (NEGATIVE) Urine Occult Blood Negative (NEGATIVE) Urine Nitrite Negative (NEGATIVE) Urine Bilirubin Negative (NEGATIVE) Urine Urobilinogen 1.0mg/dL (NORMAL) Urine Leukocyte Esterase Trace (NEGATIVE) Urine RBC 0-2/hpf (0-2) Urine WBC 11-50/hpf (0-5) Urine Epithelial Cells Moderate/hpf (NONE-MOD) Urine Crystals None seen (NONE SEEN) Urine Bacteria Many/hpf (NONE-FEW) Urine Hyaline Casts None/lpf (NONE) Urine Granular Casts None seen (NONE SEEN) Urine Waxy Casts None seen (NONE SEEN) Urine Red Blood Cell Casts None seen (NONE SEEN) Urine White Blood Cell Casts None seen (NONE SEEN) Urine Mucus None seen (None Seen) Urine Trichomonas None seen (NONE SEEN) Urine Yeast None (NONE SEEN) Urinalysis Comment None Urine Culture Reflexed Indicated Urine Osmolality 493mOs/kH2O (250-1200) Urine Random Sodium 102mEq/L Sodium Level 124mEq/L (134-144) Potassium Level 3.7mEq/L (3.5-5.2) Chloride Level 86mEq/L (97-108) Carbon Dioxide Level 21mmol/L (18-29) Blood Urea Nitrogen 16mg/dL (8-27) Creatinine 0.69mg/dL (0.57-1.00) Estimat Glomerular Filtration Rate 119mL/min (>59) Glucose Level 188mg/dL (60-99) Calcium Level 10.3mg/dL (8.5-10.1) Parathyroid Hormone (Intact) 68pg/mL (15-65) Microbiology 02/10/17 Urine Culture, Received Pending Result Diagram: 02/09/17 1135 02/09/17 1135 X-Rays, CTs and MRIs CT ABDOMEN AND PELVIS WITH CONTRAST 02/09 IMPRESSION: 1. Primary pancreatic malignancy, which is exophytic and demonstrates vascular encasement, as described above. 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 Pancreatic ductal dilatation is present. 2. Pathologic periceliac adenopathy, which demonstrates vascular encasement as described above. 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 Dictated by: Brunilda Arias M.D. on 02/09/2017 at 13:48 Approved by: Brunilda Arias M.D. on 02/09/2017 at 13:57 Assessment & Plan Suzanne Davenport is a 76 year old female with Hypertension, Diabetes, History of DVT who presents to [facility] emergency department c/o left sided abdominal pain which showed finding of Pancreatic mass, suspicious for Pancreatic malignancy 1 Pancreatic Cancer. Present on admission - Dr Marrero consulted as well as Dr Hayes (GI) planning for outpatient endoscopic ultrasound for more accurate the endosonographic staging as well as EUS guided biopsy for tissue diagnosis. 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 Present on admission. Improving - Serum osmolality low (265) Urine osmolality 493 and Urine random sodium 102 - Normal TSH ruling out thyroid disease - holding Hydrochlorothiazide - 1 Liter Free water restriction daily - holding normal saline IV 3 Acute Hypercalcemia. Present on admission. Improving Due to dehydration with consideration for Hypercalcemia of malignancy. Possible primary hyperparathyroidism - PTH 68 4 Diabetes type 2 Well controlled BG < 180 - low correction Lispro algorithm - checking A1c 8.0 - holding Metformin while in house 5 Hypertension - continue Benzapril 40 mg daily and Amlodipine 2.5 mg daily 6 Hyperlipidemia - continue Atorvastatin 40 mg HS - Acetaminophen as needed for mild pain/fever/headache - Bowel regimen as needed - Antiemetic as needed Patient admitted under inpatient status with expected length of stay > 2 midnights for severity of present symptoms, complexities of treatment plan and risk for adverse event . Resuscitation Status: CPR: Attempt Resuscitation Robert Givens MD Feb 10, 2017 07:46
[2017-02-11] MEDS: Heparin 5,000 Unit/mL Inj SUBQ SCH ×3 (00:59→17:07)
[2017-02-11] MEDS: HYDROmorphone 1 mg/mL Inj IVPUSH PRN (02:34)
[2017-02-11 06:25] VITALS: BP 111/59; PULSE 67; RESP 16; O2SAT 98
--- NOTE | 2017-02-11 06:35 | NUR ---
Pain pt has received 2mg of PO dilaudid q4hrs for R side back/abdominal pain. she reports inadequate pain control with this dosage and has required 0.5mg of IV dilaudid for breakthrough pain q4hrs as well. pt expresses concerns about going home with only the 2mg PO dilaudid ordered. Concerns shared with MD and oncoming nurse.
[2017-02-11] MEDS: Insulin LISPRO 300 Unit/3 mL Inj SUBQ SCH ×4 (08:33→22:05)
[2017-02-11 08:43] VITALS: BP 134/72; PULSE 63
[2017-02-11] MEDS ORDERED: 0.9% Sodium Chloride 250 ML ONE (09:22)
[2017-02-11] MEDS: cefTRIAXone Inj 1,000 MG in Dextrose 5% Minibag Plus 50 ML IV SCH (09:28)
--- NOTE | 2017-02-11 12:20 | PCM.PNMED ---
Subjective Date of Service Feb 11, 2017 Subjective Patient seen and examined. Feeling much better and energetic today. Slept good last night but has some concern about pain medications at night and requested a high dose of Dilaudid at night. Denies any nausea or vomiting. No fever or chills. She reports some mild burning on urination. Exam Vital Signs Vital Sign - Last Date Time Temp Pulse Resp B/P Pulse Ox O2 Delivery O2 Flow Rate FiO2 02/11/17 06:25 36.5 67 16 111/59 98 Room Air Intake and Output 02/10/17 02/10/17 02/11/17 Cumulative From/Thru 15:00 23:00 07:00 02/09/17 09:48 - 02/11/17 06:25 Intake Total 1269 ml 350 ml 4691 ml Output Total 2000 ml 1300 ml 4700 ml Balance -731 ml -950 ml -9 ml Intake Oral 556 ml 350 ml 1842 ml IV Total 713 ml 2849 ml Output Urine Total 1900 ml 1300 ml 4600 ml Emesis 100 ml 100 ml # Bowel Movements 0 Exam General: Alert, Oriented X3, Cooperative, No acute Distress Eyes: PERRLA, Scleral Anicteric Mouth: Mouth Normal, Mucous Membranes Moist/[place] Neck: Supple, no Thyromegaly, trachea central. Chest & Lungs: Clear to auscultation & percussion, No adventitious breath sounds, no crackles, no wheeze Cardiovascular: Normal S1, Normal S2, No Murmurs/Rubs/Gallops, Regular Rate/ Rhythm, Murmur, Other (No JVD, no peripheral edema) Pulses: Radial (present and equal), Dorsalis Pedi (present and equal) Abdomen: Soft, Non-tender, Non-distended, Normoactive bowel tones. Musculoskeletal: Unremarkable. Normal range of motion, no swollen or erythematous joints Extremities: No edema, no cyanosis, no clubbing. Skin: No rashes. Warm and dry, no erythematous areas Neurological: Grossly neurologically intact, has generalized weakness, Normal Speech, Sensation Intact Lymphatic: Lymph nodes Cervical and Axillary not palpable. IVs and Medications Medications Reviewed: Medications were reviewed in detail Lab and Diagnostics Laboratory Tests Test 02/11/17 05:45 Sodium Level 126mEq/L (134-144) Potassium Level 4.3mEq/L (3.5-5.2) Chloride Level 90mEq/L (97-108) Carbon Dioxide Level 26mmol/L (18-29) Blood Urea Nitrogen 14mg/dL (8-27) Creatinine 1.07mg/dL (0.57-1.00) Estimat Glomerular Filtration Rate 72mL/min (>59) Glucose Level 156mg/dL (60-99) Calcium Level 10.4mg/dL (8.5-10.1) Microbiology 02/10/17 Urine Culture - Preliminary, Resulted Result Diagram: 02/09/17 1135 02/11/17 0545 X-Rays, CTs and MRIs CT ABDOMEN AND PELVIS WITH CONTRAST 02/09 IMPRESSION: 1. Primary pancreatic malignancy, which is exophytic and demonstrates vascular encasement, as described above. 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 Pancreatic ductal dilatation is present. 2. Pathologic periceliac adenopathy, which demonstrates vascular encasement as described above. 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 Dictated by: Brunilda Arias M.D. on 02/09/2017 at 13:48 Approved by: Brunilda Arias M.D. on 02/09/2017 at 13:57 Assessment & Plan Suzanne Davenport is a 76 year old female with Hypertension, Diabetes, History of DVT who presents to [facility] emergency department c/o left sided abdominal pain which showed finding of Pancreatic mass, suspicious for Pancreatic malignancy 1 Pancreatic Cancer. Present on admission - Dr Marrero consulted as well as Dr Hayes (GI) planning for outpatient endoscopic ultrasound for more accurate the endosonographic staging as well as EUS guided biopsy for tissue diagnosis. 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 Present on admission. Improving - Possibility of a paraneoplastic syndrome - Serum osmolality low (265) Urine osmolality 493 and Urine random sodium 102 - Normal TSH ruling out thyroid disease - holding Hydrochlorothiazide - 1 Liter Free water restriction daily - Dr Gagnon consulted, appreciate his help 3 Acute Hypercalcemia. Present on admission. Improving Due to dehydration with consideration for Hypercalcemia of malignancy. Possible primary hyperparathyroidism - PTH 68 4 E coli Urinary tract infection. Present on admission - Ceftriaxone 1 gram started - follow susceptibility data 5 Diabetes type 2 Well controlled BG < 180 - low correction Lispro algorithm - checking A1c 8.0 - holding Metformin while in house 6 Hypertension - continue Benzapril 40 mg daily and Amlodipine 2.5 mg daily 7 Hyperlipidemia - continue Atorvastatin 40 mg HS - Acetaminophen as needed for mild pain/fever/headache - Bowel regimen as needed - Antiemetic as needed Patient admitted under inpatient status with expected length of stay > 2 midnights for severity of present symptoms, complexities of treatment plan and risk for adverse event Anticipate discharge tomorrow after evaluation by Oncology . Resuscitation Status: CPR: Attempt Resuscitation Robert Givens MD Feb 11, 2017 08:03
--- NOTE | 2017-02-11 13:48 | CONS ---
[address] [address] CONSULTATION REPORT PATIENT: LANEY ANNA : 1940 MR#: [id number] ADMIT: 02/09/2017 JOB ID: [id number] DATE OF SERVICE: REASON FOR CONSULTATION: Pancreatic mass. PHYSICIAN REQUESTING CONSULTATION: Robert Givens MD. HISTORY OF PRESENTING ILLNESS: The patient is a 76-year-old woman, who reports that she was in good health up until July of last year, when she was diagnosed with type 2 diabetes. She then reports being started on medications for diabetes and then starting a low-carbohydrate diet. She was apparently well up until November of this year, when she reports she was having some breathing difficulties and she thought she may have bronchitis and was seen at urgent care. She was prescribed antibiotics which she had not taken. Treated herself with mucolytics. Following this, she reports she has fully recovered, but then two months ago, she began developing epigastric pain. The epigastric pain was not associated with any nausea or vomiting. The pain did radiate into the back. She initially thought she may have pulled a muscle and therefore took NSAIDs which gave her relief. She then saw her primary care provider who had recommend taking NSAIDs for possible pulled muscle. However, as her symptoms of pain worsened, she felt that something was not right and therefore came to the emergency department for further evaluation. In addition, she does report a 20-pound weight loss, but she thought this may have been secondary to her low carbohydrate diet, which her is also on and he has lost 20 pounds, so she did not that this was unusual for her to lose 20 pounds. On admission to the emergency department, she had labs done which revealed a normal CBC. Her LFTs were normal, as was a lipase of 49. Her electrolytes, however, showed a serum sodium of 121, potassium of 3.3, chloride of 81, CO2 of 21, BUN of 29, creatinine of 1.0, glucose of 149. Her PT was 11.2, INR 1.05. She subsequently had a CT of the abdomen which showed there was an ill-defined region of hypo-enhancement within the inferior aspect of the body and neck of the pancreas which appeared to be exophytic and extending into the peripancreatic soft tissue. There was also interruption of the pancreatic duct within the pancreatic neck. There is associated pancreatic ductal dilation within the body and tail and this mass demonstrates encasement of the superior aspect of the superior mesenteric vein. There appears to be partial encasement with moderate to high-grade narrowing of the central aspect of the splenic vein and then the exophytic portion of the mass abuts the anterior portion of the superior mesenteric artery. Additionally, there is a 17 mm, periceliac lymph node which encases the celiac artery. There is also moderate to severe narrowing in the distal celiac and proximal common hepatic arteries. No metastatic liver lesions are noted, or ascites. PAST MEDICAL HISTORY: Significant for recent diagnosis of diabetes, hypertension, hyperlipidemia, history of DVT. PAST SURGICAL HISTORY: Includes hysterectomy, appendectomy, and tonsillectomy. FAMILY HISTORY: Significant coronary artery disease, as well as hypertension and CVA. HOME MEDICATIONS: Include: 1. Amlodipine 2.5 mg daily. 2. Aspirin 325 mg daily. 3. Atorvastatin 40 mg daily. 4. Benazepril 40 mg daily. 5. Carvedilol 25 mg twice a day. 6. Cinnamon capsules. 7. Fish oil. 8. Hydrochlorothiazide 25 mg daily. 9. Metformin 500 mg b.i.d. 10. Multivitamin daily. 11. Tramadol 50 mg every 6 hours as needed for pain. She has no known drug allergies. REVIEW OF SYSTEMS: Otherwise negative, except as mentioned in the HPI. PHYSICAL EXAMINATION: Temperature is 36.7. Her pulse is 71. Blood pressure is 122/72, respiratory rate is 18, O2 saturation is 98% on room air. Her exam shows that generally she appears to be in no apparent distress. She is oriented to person, place, and time, and answers questions appropriately. HEENT: No pallor. No icterus. Oropharynx is clear. Chest exam is clear to auscultation bilaterally. Cardiovascular exam: S1 and S2 heard. No murmurs appreciated. Abdomen is soft, nontender, nondistended, without hepatosplenomegaly and normal positive bowel sounds appreciated. Extremities without edema. LABORATORY DATA: As discussed above and imaging data as discussed above. ASSESSMENT AND PLAN: A 76-year-old woman with recent diagnosis of type 2 diabetes, presenting with a two-month history of epigastric pain with radiation to the back, weight loss, and CT findings with a pancreatic mass with extension locally to the superior mesenteric vein, celiac access, and the common hepatic vein. There is no evidence of biliary involvement. Based on CT findings, I do not believe that her tumor is currently resectable. I discussed with the patient in detail regarding endoscopic ultrasound for tissue diagnosis and staging, and she is agreeable to proceed. My office will contact her next week to schedule an outpatient EUS. In the meantime, I would continue correcting her electrolyte abnormalities and controlling pain. Thank you for allowing me to participate in this patient's care. If you should have any further questions, please do not hesitate to contact me.
--- NOTE | 2017-02-11 13:56 | CONS ---
[address] [address] CONSULTATION REPORT PATIENT: LANEY ANNA : 1940 MR#: [id number] ADMIT: 02/09/2017 JOB ID: [id number] CORRECTED REPORT: DATE OF SERVICE: 02/11/2017 RENAL CONSULTATION: HISTORY: The patient is a rather unfortunate, 76-year-old, white female, who was admitted to [facility] for severe abdominal pain and an approximately 15- to 20-pound weight loss. During the evaluation, she was found to have a pancreatic mass consistent with pancreatic cancer. At time of admission, her sodium is 124, and Renal consultation is being sought for further evaluation of her hyponatremia. She states that for almost two months, she has had intermittent, boring-type epigastric pain which has worsened after a recent bronchitis episode. She states that she has been having some weight loss, fever, chills, and anorexia. She denies any nausea or vomiting per se. She also states that she drinks a considerable amount of water, and for the last several weeks, has been taking [id number] ibuprofen. Of note, she also takes hydrochlorothiazide for hypertension. In the emergency room, CT was performed, and she was found to have a pancreatic mass as detailed above. Her sodium was 124, and subsequent workup of this showed a serum osmolarity of 265, urine osmolarity of 493, and urine sodium of 102. All of this is consistent with syndrome of inappropriate ADH secretion. She has been placed on fluid restriction and her serum sodium this morning has improved to 126. The patient denies a history of any prior renal problems. There is no history of any frequent urinary tract infections, renal lithiasis, hematuria, proteinuria. She does use nonsteroidals as detailed above, and there is a history of [id number] diabetes mellitus for which she has recently started taking metformin. She also has a history of hypertension for which she takes amlodipine, benazepril, and hydrochlorothiazide. She states she is compliant with her medications. In trying to quantify her water intake, it does not seem that she drinks an excessive amount of water nor does she drink any beer. PAST MEDICAL HISTORY: Significant for diabetes, hypertension, hyperlipidemia, prior DVT, but no history of any stroke, seizure, asthma, emphysema, tuberculosis, myocardial infarction, or congestive heart failure. She denies a history of any thyroid illness. PAST SURGICAL HISTORY: Significant for tonsillectomy and hysterectomy. ALLERGIES: She is not allergic to any food or any medications. SOCIAL HISTORY: She takes ethanol on rare occasions and denies the use of tobacco. FAMILY HISTORY: Remarkable for diabetes, heart disease, stroke, and hypertension. MEDICATIONS: Are detailed above. REVIEW OF SYSTEMS: Is also detailed above. Otherwise is noncontributory. PHYSICAL EXAMINATION: Revealed a mildly pale, 76-year-old, white female, who was alert and oriented x3, in no distress at time of my evaluation. Her blood pressure was 115/72 with a pulse of 89. HEENT examination is remarkable for pale sclerae. Neck is supple without adenopathy, thyromegaly, or jugular venous distention. Lungs are clear to auscultation. Heart is regular and rhythmical with a soft systolic murmur. Abdomen is soft, without any tenderness, rebound, guarding, masses or hepatosplenomegaly. Extremities did not show any evidence of any clubbing, cyanosis, edema, or [id number]-gfje nails. Skin turgor was good. LABORATORY EXAMINATION: This morning, her sodium is 126, potassium 4.3, chloride of 90, bicarbonate 26, BUN and creatinine were 14 and 1.07. Calcium was 10.4. Urinalysis showed a specific gravity of 1.015, pH was 6. Test for glucose was positive. There were 11-50 WBCs per high-power field with moderate epithelial cells. Urine osmolarity was 493 with urine sodium of 102, and a serum osmolarity of 262. IMPRESSION: 1. Hyponatremia. 2. Syndrome of inappropriate antidiuretic hormone secretion. RECOMMENDATION: I would agree with continuing her on the fluid restriction and trying to avoid any further thiazides or nonsteroidal anti-inflammatories Once again, I would like to thank you for allowing me to participate in the care of this most pleasant and interesting patient. I will be following her closely with you. Corrected by ASTON 03/08/17 at 1:46pm DOS
--- NOTE | 2017-02-11 14:46 | NUR ---
JANESSA signed. Radha Mortensen TECHNICAL IMPLEMENTATION LEAD
[2017-02-11 15:34] VITALS: BP 109/67; PULSE 77; RESP 18; O2SAT 97
--- NOTE | 2017-02-11 16:38 | NUR ---
Social Work- Readiness for Discharge Data: EMR reviewed. Pt is on day 2 of hospitalization for pancreatic malignancy per H&P. SW spoke with pt regarding discharge plan, needs at discharge. Pt requested a Rx for a BSC at discharge, SW explained this will not be covered by [facility]. Pt is aware of this, requested that she receive one so that she can have [facility] reject it and then bill her secondary payor. Declined having SW fax the script to [facility]. Acknowledged that she will likely pay out of pocket for this. Pt to discharge home with to transport via POV. No anticipated discharge needs. SW will continue to follow. Assessment: Pt who is independent at base. Plan: Rx for BSC in folder to be provided to pt. Pt to discharge home with to transport via POV. No anticipated discharge needs. SMITHA will continue to follow. Radha Mortensen MSW
--- NOTE | 2017-02-11 19:41 | NUR ---
Pain At start of shift, pt had previously received 2mg PO Dilaudid. On reassessment and post breakfast stated that she could go all day like this if it (the pain) would stay at its current levels. By afternoon pt stating she would need additional pain medication because the 2mg is not working. Raghav burris to - received increase to 3mg. 3mg PO Dilaudid given at 1845. Pt stating 9/10 pain, trying to get comfortable in bed. Pt aware of her nighttime dose and is wanting to receive that when available. Medications effective but per pt, do not last the full four hours. States they only last 2-3hours. Care continues.
[2017-02-11 21:59] VITALS: BP 127/57; PULSE 82; RESP 20; O2SAT 96
[2017-02-12] MEDS: Heparin 5,000 Unit/mL Inj SUBQ SCH ×2 (00:29→08:58)
--- NOTE | 2017-02-12 03:43 | NUR ---
Pain when pt was offered her night time dose of PO dilaudid which was 3mg she stated that was not what she had been told by the day time doctor. she stated that she had been told that she could have 4mg of PO dilaudid at bedtime and again at 0200 if she needed because her pain was increased at night and she couldn't sleep. night hospitalist was yoly najera and gave the OK to give pt the ordered 3mg of dilaudid plus an additional 1mg. pt was given 4mg of dilaudid and slept until 0130 when she again asked for another 4 mg. again MD was dania who gave the order to give her 4mg. pt sleeping at this time appearing comfortable. however she did state that they were going to have to do more to make her comfortable if she was going to go home. care continues.
[2017-02-12 05:12] VITALS: BP 140/73; PULSE 78; RESP 16; O2SAT 99
[2017-02-12] MEDS ORDERED: SENN-133 PO (05:57)
[2017-02-12] MEDS ORDERED: POLY17PO6 PO (05:57)
[2017-02-12] MEDS ORDERED: HYDR2TAB27 PO ×3 (05:57→13:54)
[2017-02-12] MEDS: cefTRIAXone Inj 1,000 MG in Dextrose 5% Minibag Plus 50 ML IV SCH (09:00)
[2017-02-12] MEDS: Insulin LISPRO 300 Unit/3 mL Inj SUBQ SCH ×2 (09:01→12:00)
--- NOTE | 2017-02-12 11:01 | NUR ---
Social Work-readiness for discharge: Data:EMR Reviewed. Pt is on day 3 of hospitalization for pancreatic malignancy per H&P. Pt is not medically stable for discharge anticipate later today or tomorrow. SW followed up with pt to provide RX for BSC. Pt states she has already obtained BSC and does not need a RX For this. Pt confirms plan of returning home with to transport. No anticipated discharge needs. SW will continue to follow if needs arise. Assessment:Pt who is independent at baseline. Plan:Pt to discharge home when medically stable via POV. No anticipated discharge needs. SW will continue to follow if needs arise. CHANEL Bello
--- NOTE | 2017-02-12 12:19 | NUR ---
Palliative Care Palliative Care received verbal order from Dr Hillman 02/12/17 to assist with pain management. Patient is a 76 year old woman with pancreatic cancer. She was admitted 02/09/17. Patient lives at home with . Scott Issac () [phone] Palliative Care to follow. Radha Andino
--- NOTE | 2017-02-12 12:57 | PCM.CONPAL ---
Date of Service February 12, 2017 Date of Hospital Admission: Feb 09, 2017 at 15:39 Date of Palliative Consult: February 12, 2017 Requesting Provider: Radha Hillman DO Reason Palliative Care Consult: Pain, Goals of Care Discussion Hospital Unit @time of consult: Orthopedic/Surgical Care Palliative Care Recommendation Summary of palliative recommendations: -Symptom management (Pain/other) Pain-adequately controlled at this time. She believes the hydrocodone was very sedating but I believe this most likely due to profound exhaustion when she finally took 1 pill. Despite this she would prefer that hydromorphone in that she is now familiar with this medication. She is not sure that she wants the long-acting morphine fearing that it would cause her oversedation. Reviewed that based on her hydromorphone dose I suspect she would do fine with 15 mg every 12 hours of MS DENNY. Reviewed that she can start with at bedtime dose and increase from there with use of the hydromorphone only as a when necessary. Reviewed potential issues with narcotics challenge with driving sedation not to be used with alcohol, potential for constipation, increased risk of falls. Reviewed issue of dosing based on symptoms and pain and adjustments in her medications to be made on a when necessary basis. Constipation advised use of senna on a regular basis to control constipation particularly in light of starting routine opiates. Weight loss encouraged high-protein liquids snacking and especially snack at bedtime. Presumed pancreatic CA-biopsy pending as well as consultation at [facility] High risk for depression. Goals of care: Patient is interested in pursuing consultation at [facility] as well as proceeding with aggressive intervention be it surgical or chemotherapy -DPOA/Advanced Directives/POLST-as yet no paper work completed. She wants to be full code. Reviewed that now is the time to think of when she may want to really address her CODE STATUS. She and her have an appointment with their traffic signal mechanic for setting up a will as well as [employer] for healthcare she defines first, daughter who lives in [facility], and also to complete advanced directive. -Family/emotional support-, daughter, granddaughter -Spiritual support-not involved in a uatsdin Patient Goals: 1. Patient wants to be told the truth about his/her illness, even if it is unpleasant. 2. Patient would like to be told prognosis when it can be predicted, to better guide treatment decisions. 3. Patient would choose quality of life over quantity of life, and defines quality as some level of independence without pain. 4. Patient would request that comfort care take priority over cognitive/mental confusion. Additional Medical Diagnoses with primary management by Hospitalist team include : Diabetes Hypertension Hyponatremia- most likely due to her hydrochlorothiazide now discontinued. Reviewed with patient that I would advise using her other antihypertensives for blood pressure control and to avoid diuretics if possible. Pancreatic mass biopsy scheduled next week Suspect some underlying depression based on her anger. Would suspect she is very susceptible to depression and consider starting SSRI depending on how she does in the next few weeks Offered follow-up as an outpatient regarding pain management. Also offered consultation with her family if this would be of benefit for her. She has a medical background-and so far this has helped her understand her diagnosis and potential course. Problems: End of Life Preferences Plans on completing advanced directive and does not want to be sustained if terminal, and if little hope for quality of life and independence Disposition Home with follow-up as an outpatient with palliative care on a when necessary basis. She will have follow-up with and [facility] after biopsy has been obtained next week Resuscitation Status Resuscitation Status: CPR: Attempt Resuscitation POLST Updates/Changes Previous POLST?: No Artificially Admin Nutrition: No Artifical Nutrition by Tube . Pain: Moderate Symptom management: Constipation Pt History History of Present Illness PALLIATIVE CARE CONSULTATION Requesting provider: Dr. Radha Hillman Reason: goals of care and pain management oncology-dr. Marrero Suzanne Davenport is a 76 year old female with Hypertension, Diabetes, History of DVT who presents to [facility] emergency department c/o left sided abdominal pain.Pain was present for a couple of months but continued to worsen and disturbed her sleep. Primarily L flank but then across mid back and to epigastrium. This was also associated with 20-25# weight loss. She took 1 vicodin 5/325 the evening before admission with complete relief of her sx and she was able to sleep.she didn't have anymore and she came to the ER with a note of large mass extending from the pancreas causing vascular compression and celiac LN complex that is causing vascular compression and evidence of an older IVC thrombus. She has hx DVT 1997 and 2012. She denies edema. Since she has been hospitalized she has been treated with 3 mg of hydromorphone which she believes is less sedating than the hydrocodone was. She otherwise has not taken any narcotics. She did try tramadol and it was of no effect. She had one bout of nausea and vomiting first starting her hydromorphone but has not had any problems since. She has some problems with constipation. She identifies herself as being healthy her whole life "not even colds". She is a non-smoker and drinks very little alcohol. Only other past medical history is diabetes which is recent as well as hypertension. She is status post cholecystectomy appendectomy and a vaginal hysterectomy. 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 Gdtr and her Living Situation: lives with Responsive Patient Symptoms Pain (current): Moderate Tiredness/Fatigue: Mild Nausea: Mild Depression: Mild Drowsiness/Sleepiness: None Anorexia: Mild Shortness of Breath: None Constipation sho with narcotics Other foul taste that occurred with onset of pain-better wears support hose for years Palliative Performance Scale PPS Patient Status: Baseline PPS Ambulation: Full PPS Activity: Normal activity with effort PPS Self-Care: Full Self Care PPS Intake: Normal PPS Conscious Level: Full Performance Scale: 90% Allergy Allergies Reviewed: Yes Medications Current Medications: Current Medications Atorvastatin Calcium 40 mg HS PO Last administered on 02/11/17 21:59; Admin Dose 40 MG; Start 02/10/17 at 21:00 Hydromorphone HCl 2 mg 2 mg Q4H PRN PO Last administered on 02/11/17 14:13; Admin Dose 2 MG; Start 02/10/17 at 18:50; Stop 02/11/17 at 15:08; Status DC Ceftriaxone Sodium/Dextrose/ Water 50 ml @ 100 mls/hr Q24H IV Last administered on 02/12/17 09:00; Admin Dose 100 MLS/HR; Start 02/11/17 at 08:05 Hydromorphone HCl 2 mg HS PO; Start 02/11/17 at 21:00; Stop 02/11/17 at 21:00; Status DC Hydromorphone HCl 3 mg HS PO Last administered on 02/11/17 21:58; Admin Dose 3 MG; Start 02/11/17 at 21:00 Hydromorphone HCl 3 mg Q4H PRN PO Last administered on 02/12/17 06:20; Admin Dose 3 MG; Start 02/11/17 at 15:08 Metformin HCl 500 mg BIDWM PO; Start 02/12/17 at 10:09 Morphine Sulfate 15 mg BID PO; Start 02/12/17 at 20:30 Hydromorphone HCl for breakthrough pain Q3H PRN PO; Start 02/12/17 at 12:00 Scheduled Amlodipine (Amlodipine) 2.5 Mg Tablet 2.5 MG PO DAILY Amoxicillin/Clav K 500-125 mg (Augmentin 500) 1 Tab Tab 1 TABLET PO BID Aspirin (Aspirin) 81 Mg Tablet 162 MG PO BID Atorvastatin (Lipitor) 40 Mg Tablet 40 MG PO DAILY Benazepril (Benazepril) 40 Mg Tablet 40 MG PO DAILY Carvedilol (Coreg) 12.5 Mg Tablet 12.5 MG PO BID Metformin (Glucophage) 1,000 Mg Tablet 1,000 MG PO BID Morphine Sulfate ER (Morphine Sulfate ER) 15 Mg Tablet 15 MG PO BID Scheduled PRN Hydromorphone (Dilaudid) 2 Mg Tablet 3 MG PO Q4H PRN PRN For Pain Polyethylene Glycol 3350 (Miralax) 17 Gm Powd.pack 17 GM PO DAILY PRN PRN For Constipation Sennosides (Senna) 8.6 Mg Tablet 17.2 MG PO BID PRN PRN For Constipation Objective Findings Exam Vital Sign - Last Date Time Temp Pulse Resp B/P Pulse Ox O2 Delivery O2 Flow Rate FiO2 02/12/17 05:12 36.3 78 16 140/73 99 Room Air Intake and Output 02/11/17 02/11/17 02/12/17 Cumulative From/Thru 14:59 22:59 06:59 02/09/17 09:48 - 02/12/17 05:12 Intake Total 108 ml 922 ml 250 ml 5971 ml Output Total 1100 ml 1600 ml 7400 ml Balance 108 ml -178 ml -1350 ml -1429 ml Intake Oral 922 ml 250 ml 3014 ml IV Total 108 ml 2957 ml Output Urine Total 1100 ml 1600 ml 7300 ml Emesis 100 ml # Bowel Movements 0 2 2 General: Alert/Oriented x3, No acute distress, Other (talkative, occ tearful and sometimes angry) HEENT: PERRLA, EOMI, Scleral Anicteric Heart: Regular Rate/Rhythm Lungs: Clear to Auscultation Abdomen: Bowel Tones x4 Neuro: Exam Intact Extremities: No Edema Lab/Diagnostics Lab and Imaging results reviewed in detail in EMR. Labs and CT scan reviewed Na 121 on admit now 132 Patient/Family Conference Members Present Family Members Present patient Medical Team Members Present? Sheila DUT[facility] Discussion/Goals of Care Discussion FAMILY UNDERSTANDING OF DISEASE: Patient is well aware of severity of disease. She recognizes that exact diagnosis is still pending with a biopsy scheduled for next week but the most likely diagnosis is metastatic pancreatic CA She is able to define plan and schedule for [facility] consultation. DISEASE PROGRESSION/EVIDENCE OF DECLINE: SYMPTOM BURDEN: Pain and weight loss is her primary symptom burden which right now is very well controlled and appetite is improved GOALS: Her goal is to be aggressive regarding treatment of malignancy until it is evident that it is not working. She recognizes that any treatment is unlikely to cause cure. HOPES/WORRIES: She definitely is interested in quality of life and at this point not quantity. She has challenges with being distanced from 3 out of her 4 children. She does not particularly want her daughters in [place] involved and she is reluctant to relay this information to her son in [place]. She identifies that she wants all information have follow CT scans etc. as well as treatment plan set out before any of this information is shared. Palliative Care counselled: Time spent Total time 60 minutes; >50% face to face with patient and/or family, providing counselling regarding plans and recommendations, and in care coordination with his/her medical teams. Majority of time spent reviewing chart scan labs, interview and discussion with patient in coordination of care with Dr. Hillman I also spent an additional [ ] minutes counseling for advanced care planning with the patient/the patients family/the surrogate decision maker. copies to: Richie Canas MD; Abdelrahman Marr MD, Deborah A MD February 12, 2017 12:57
[2017-02-12] MEDS ORDERED: 0.9% Sodium Chloride 1,000 ML IV SCH (13:05)
--- NOTE | 2017-02-12 13:23 | PCM.PNNEPH ---
Subjective Date of Service February 12, 2017 Subjective Na 132 after IV NS. Serum calcium has been normalized. Serum BUN and creatinine are within normal limits. PTH noted to be elevated at 68. Exam Vital Signs Vital Sign - Last Date Time Temp Pulse Resp B/P Pulse Ox O2 Delivery O2 Flow Rate FiO2 02/12/17 05:12 36.3 78 16 140/73 99 Room Air Intake and Output 02/11/17 02/11/17 02/12/17 Cumulative From/Thru 15:00 23:00 07:00 02/09/17 09:48 - 02/12/17 05:12 Intake Total 108 ml 922 ml 250 ml 5971 ml Output Total 1100 ml 1600 ml 7400 ml Balance 108 ml -178 ml -1350 ml -1429 ml Intake Oral 922 ml 250 ml 3014 ml IV Total 108 ml 2957 ml Output Urine Total 1100 ml 1600 ml 7300 ml Emesis 100 ml # Bowel Movements 0 2 2 Exam GENERAL: The patient in no apparent distress, and alert and oriented x3. HEENT: Head is normocephalic and atraumatic. Extraocular muscles are intact. Pupils are equal, round, and reactive to light and accommodation. Nares appeared normal. Mouth is well hydrated and without lesions. Mucous membranes are moist. Posterior pharynx clear of any exudate or lesions. NECK: Supple, no elevation of JVD, No carotid bruits. No lymphadenopathy or thyromegaly. LUNGS: Clear to auscultation, equal breath sounds bilaterally, no wheezing, no rhonchi no rales. HEART: Normal S1/S2, Regular rate and rhythm, no murmurs, rubs or gallops. 2+ pules throughout. ABDOMEN: Soft, nontender, and nondistended. Positive bowel sounds. No hepatosplenomegaly was noted. Mild tenderness on the epigastric area. No rebound. No guarding. EXTREMITIES: Without any cyanosis, clubbing, rash, lesions or edema. NEUROLOGIC: The patient is oriented to person, place and time. Strength and sensation are grossly intact. SKIN: No ulceration or induration present. Lab and Diagnostics Result Diagram: 02/09/17 1135 02/12/17 0527 X-Rays, CTs and MRIs CT ABDOMEN AND PELVIS WITH CONTRAST 02/09 IMPRESSION: 1. Primary pancreatic malignancy, which is exophytic and demonstrates vascular encasement, as described above. 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 Pancreatic ductal dilatation is present. 2. Pathologic periceliac adenopathy, which demonstrates vascular encasement as described above. 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 Dictated by: Brunilda Arias M.D. on 02/09/2017 at 13:48 Approved by: Brunilda Arias M.D. on 02/09/2017 at 13:57 Plan Impression 1. Chronic hyponatremia Given history of poor appetite, weight loss, usage of diuretic, and hypovolemia , the etiology of hyponatremia I think is due to HCTZ and poor oral intake. Serum sodium has been corrected with IV normal saline, her current serum sodium is 132. Recommend to hold hydrochlorothiazide. Discontinue water restriction Continue NS 100 ml/hr for now. Disposition as per primary team. f/u in 2 weeks, BMP 1 week prior. 2. Hypercalcemia, resolved. Elevated serum PTH, less likely caused by malignancy. Likely due to dehydration and hydrochlorothiazide. 3. 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 - pending an outpatient EUS. 4. Essential hypertension. Tanisha Velásquez MD February 12, 2017 13:23
[2017-02-12] MEDS ORDERED: METF1000 PO (13:31)
[2017-02-12] MEDS ORDERED: MORP-32 PO (13:42)
--- NOTE | 2017-02-12 13:58 | PCM.DIMED ---
Discharge Instructions Date of Service February 12, 2017 Dates of Hospitalization Feb 09, 2017 at 15:39 Discharge Diagnosis Discharge Diagnosis Hyponatremia, Intractable Abdominal pain due to pancreatic cancer Medication Instructions Morphine Sulfate 15 mg PO BID, dilaudid PO 3 mg Q4HPRN Senna, miralax for constipation, Increased dose of metformin. Please stop HCTZ. Diet Heart Healthy, Diabetic Activity No restrictions Call your provider Fever or Chills, Shortness of breath, Bleeding, Chest pain, Vomitting, Excessive diarrhea, Weakness (unilateral), Other Patient Instructions Follow-up plan F/U with Dr. Hodge in 2 weeks, BMP in one week prior f/u with Dr. Hodge F/U with Dr. Draper in 2 weeks for pain management F/U with PCP in 2 weeks Please F/U with Dr. Marrero as previosuly scheduled Please F/U with Dr. Hayes of Gastroenterology for expedited endoscopic ultrasound, his office will set it up. Radha Hillman DO February 12, 2017 13:58
--- NOTE | 2017-02-12 14:55 | NUR ---
Social Work-discharge: Data:EMR Reviewed. Pt is on day 3 of hospitalization for pancreatic malignancy per H&P. Pt is medically stable for discharge. Pt states she has already obtained BSC for home use. Pt denies any other SW needs. Pt's to provide transport home. No discharge needs identified. All updated and agreeable to plan. Assessment:pt who is independent at baseline. Plan:Pt to discharge home today via POV. No discharge needs identified. All updated and agreeable to plan. CHANEL Bello
[2017-02-12] MEDS ORDERED: AMOX1TAB11 PO (15:19)
--- NOTE | 2017-02-12 15:19 | PCM.DC.MED ---
Discharge Summary Date of Service February 12, 2017 Dates of Hospitalization Date of Hospital Admission Feb 09, 2017 at 15:39 Date of Discharge: February 12, 2017 Providers: Admitting Physician: Robert Givens MD Primary Care Physician: Richie Canas MD Attending Physician: Robert Givens MD Diagnosis at Time of Discharge Diagnosis at Time of Discharge Hyponatremia, Intractable Abdominal pain due to pancreatic cancer, UTI, Hypercalcemia Procedures XRay, CTs & MRIs CT ABDOMEN AND PELVIS WITH CONTRAST 02/09 IMPRESSION: 1. Primary pancreatic malignancy, which is exophytic and demonstrates vascular encasement, as described above. 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 Pancreatic ductal dilatation is present. 2. Pathologic periceliac adenopathy, which demonstrates vascular encasement as described above. 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 Dictated by: Brunilda Arias M.D. on 02/09/2017 at 13:48 Approved by: Brunilda Arias M.D. on 02/09/2017 at 13:57 Brief History PALLIATIVE CARE CONSULTATION Requesting provider: Dr. Radha Canales Suzanne Davenport is a 76 year old female with Hypertension, Diabetes, History of DVT who presents to [facility] emergency department c/o left sided abdominal pain.Pain was present for a couple of months but continued to worsen and disturbed her sleep. Primarily L flank but the across mid back and to epigastrium. This was also associated with 20-25# weight loss. Hospital Course Suzanne Davenport is a 76 year old female with Hypertension, Diabetes, History of DVT who presents to [facility] emergency department c/o left sided abdominal pain which showed finding of Pancreatic mass, suspicious for Pancreatic malignancy 1 Pancreatic Cancer. Present on admission - Dr Marrero consulted as well as Dr Hayes (GI) planning for outpatient endoscopic ultrasound for more accurate the endosonographic staging as well as EUS guided biopsy for tissue diagnosis. Dr. Shaw's office will schedule this. - Tumor markers still pending - Cancer pain still not well controlled, adding Dilaudid 2 mg PO q 4 hours PRN - continuing Dilaudid 0.5 mg IV q 4 hours for breakthrough pain - Palliative car eis consuled: They feel that morphine sulfate extended release 15 mg twice a day+ 60 mg Dilaudid every 4 hours when necessary for breakthrough with the appropriate for discharge -- Follow-up with palliative care in 2 weeks after discharge 2 Acute Hypochloremic Hyponatremia due to SIADH vs versus hypovolemic. Present on admission. Improving - Possibility of a paraneoplastic syndrome - Serum osmolality low (265) Urine osmolality 493 and Urine random sodium 102 - Normal TSH ruling out thyroid disease - Discontinued hydrochlorothiazide at the time of discharge per nephrology. -- Sodium is 132 at the time of discharge -- Follow-up BMP is given -- No need for oral fluid restriction per Dr. Hodge from nephro -- Follow-up with Dr. anderson-in 2 weeks, follow BMP in 1 week 3 Acute Hypercalcemia likely due to hypovolemia due to dehydration. Present on admission. Improving -- Due to dehydration with consideration for Hypercalcemia of malignancy. Possible primary hyperparathyroidism -- PTH 68 4 E coli Urinary tract infection. Present on admission - Ceftriaxone 1 gram started - follow susceptibility data, patient is given Augmentin prescription for home DC 5 Diabetes type 2 Well controlled BG < 180 - low correction Lispro algorithm - checking A1c 8.0 -Increased her metformin to 1000 twice a day at discharge 6 Hypertension - continue Benzapril 40 mg daily and Amlodipine 2.5 mg daily 7 Hyperlipidemia - continue Atorvastatin 40 mg HS 8. UTI: Ceftriaxone, then augmentin - Acetaminophen as needed for mild pain/fever/headache - Bowel regimen as needed - Antiemetic as needed Patient admitted under inpatient status with expected length of stay > 2 midnights for severity of present symptoms, complexities of treatment plan and risk for adverse event Anticipate discharge tomorrow after evaluation by Oncology . Exam Vital Signs (Last) Date Time Temp Pulse Resp B/P Pulse Ox O2 Delivery O2 Flow Rate FiO2 02/12/17 05:12 36.3 78 16 140/73 99 Room Air Exam Gen.: No acute distress , sitting up in bed HEENT: Normocephalic, atraumatic Neck: Negative for JVD negative for thyromegaly and trachea appears central Heart: Regular rate and rhythm no S3-S4 sounds Lungs clear to auscultation no crackles or wheezes Abdomen nondistended Extremities negative for edema Psychiatric negative for anxiety Neurological negative for focal deficits Test 02/09/17 11:30 02/09/17 11:35 02/10/17 03:15 02/10/17 07:35 Osmolality 265 (275-300) White Blood Count 8.0th/mm3 (3.8-10.1) Red Blood Count 4.20mil/mm3 (3.90-5.20) Hemoglobin 13.5g/dL (12.0-15.6) Hematocrit 37.3% (35.0-46.0) Mean Corpuscular Volume 88.8fL (81-100) Mean Corpuscular Hemoglobin 32.1pg (27.0-35.0) Mean Corpuscular Hemoglobin Concent 36.2% (32.0-37.0) Red Cell Distribution Width 11.5% (12.3-15.4) Platelet Count 283bil/L (150-400) Neutrophils (%) (Auto) 73.3% (40-74) Lymphocytes (%) (Auto) 17.7% (14-46) Monocytes (%) (Auto) 7.8% (4-12) Eosinophils (%) (Auto) 0.6% (0-5) Basophils (%) (Auto) 0.3% (0-3) Prothrombin Time 11.2sec (8.1-12.5) Prothromb Time International Ratio 1.05ratio Hemoglobin A1c 8.0% (4.8-5.6) Magnesium Level 1.6mg/dL (1.6-2.6) Total Bilirubin 1.2mg/dL (0.0-1.2) Aspartate Amino Transf (AST/SGOT) 23U/L (0-50) Alanine Aminotransferase (ALT/SGPT) 20U/L (0-32) Alkaline Phosphatase 54U/L (25-165) Total Protein 7.4g/dL (6.4-8.4) Albumin 4.4g/dL (3.4-5.0) Lipase 49U/L (13-60) Thyroid Stimulating Hormone (TSH) 1.150uIU/mL (0.450-4.500) Urine Color Yellow (YELLOW) Urine Appearance Cloudy (CLEAR,HAZY) Urine pH 6.0 (5.0-8.0) Urine Specific [place] 1.015 (1.003-1.035) Urine Protein Negativemg/dL (NEG,TRACE) Urine Glucose (UA) 100mg/dL (NEGATIVE) Urine Ketones Negativemg/dL (NEGATIVE) Urine Occult Blood Negative (NEGATIVE) Urine Nitrite Negative (NEGATIVE) Urine Bilirubin Negative (NEGATIVE) Urine Urobilinogen 1.0mg/dL (NORMAL) Urine Leukocyte Esterase Trace (NEGATIVE) Urine RBC 0-2/hpf (0-2) Urine WBC 11-50/hpf (0-5) Urine Epithelial Cells Moderate/hpf (NONE-MOD) Urine Crystals None seen (NONE SEEN) Urine Bacteria Many/hpf (NONE-FEW) Urine Hyaline Casts None/lpf (NONE) Urine Granular Casts None seen (NONE SEEN) Urine Waxy Casts None seen (NONE SEEN) Urine Red Blood Cell Casts None seen (NONE SEEN) Urine White Blood Cell Casts None seen (NONE SEEN) Urine Mucus None seen (None Seen) Urine Trichomonas None seen (NONE SEEN) Urine Yeast None (NONE SEEN) Urinalysis Comment None Urine Culture Reflexed Indicated Urine Osmolality 493mOs/kH2O (250-1200) Urine Random Sodium 102mEq/L Parathyroid Hormone (Intact) 68pg/mL (15-65) Test 02/12/17 05:27 Sodium Level 132mEq/L (134-144) Potassium Level 4.2mEq/L (3.5-5.2) Chloride Level 93mEq/L (97-108) Carbon Dioxide Level 25mmol/L (18-29) Blood Urea Nitrogen 17mg/dL (8-27) Creatinine 0.85mg/dL (0.57-1.00) Estimat Glomerular Filtration Rate 93mL/min (>59) Glucose Level 188mg/dL (60-99) Calcium Level 9.7mg/dL (8.5-10.1) Discharge Medications Discharge Medications Amlodipine (Amlodipine) 2.5 Mg Tablet 2.5 MG PO DAILY (Reported) Amoxicillin/Clav K 500-125 mg (Augmentin 500) 1 Tab Tab 1 TABLET PO BID Prescribed by: RADHA CANALES DO Aspirin (Aspirin) 81 Mg Tablet 162 MG PO BID (Reported) Atorvastatin (Lipitor) 40 Mg Tablet 40 MG PO DAILY (Reported) Benazepril (Benazepril) 40 Mg Tablet 40 MG PO DAILY (Reported) Carvedilol (Coreg) 12.5 Mg Tablet 12.5 MG PO BID (Reported) Metformin (Glucophage) 1,000 Mg Tablet 1,000 MG PO BID Prescribed by: RADHA CANALES DO Morphine Sulfate ER (Morphine Sulfate ER) 15 Mg Tablet 15 MG PO BID Prescribed by: RADHA CANALES DO As needed Hydromorphone (Dilaudid) 2 Mg Tablet 3 MG PO Q4H PRN PRN For Pain Prescribed by: RADHA CANALES DO Polyethylene Glycol 3350 (Miralax) 17 Gm Powd.pack 17 GM PO DAILY PRN PRN For Constipation Prescribed by: RADHA CANALES DO Sennosides (Senna) 8.6 Mg Tablet 17.2 MG PO BID PRN PRN For Constipation Prescribed by: RADHA CANALES DO Additional med instructions Morphine Sulfate 15 mg PO BID, dilaudid PO 3 mg Q4HPRN Senna, miralax for constipation, Increased dose of metformin. Please stop HCTZ. Followup Plan Follow-up plan F/U with Dr. Hodge in 2 weeks, BMP in one week prior f/u with Dr. Hodge F/U with Dr. Draper in 2 weeks for pain management F/U with PCP in 2 weeks Please F/U with Dr. Marrero as previosuly scheduled Please F/U with Dr. Hayes of Gastroenterology for expedited endoscopic ultrasound, his office will set it up. Discharge Diet: Heart Healthy, Diabetic Discharge Activity: No restrictions Radha Canales DO February 12, 2017 14:04
--- NOTE | 2017-02-12 15:45 | NUR ---
Discharge Pt DC home with her . She has all of the follow up appointment information for gastroenterology, nephrology, palliative and her PCP. She understands she needs labs drawn next week at [facility]. Pain has been adequately controlled and long acting MS Contin was ordered. Pt was given Augmentin for 5 days for her UTI. All questions answered and belongings with her and her .
[2017-02-12] MEDS ORDERED: Morphine ER 15 mg (MS Contin) Tablet PO SCH (20:30)
--- NOTE | 2017-02-14 14:25 | PCM.PALLBR ---
Palliative Brief Note Date of Service February 14, 2017 . TC from patient 2 day out of hospital but follow up appt not until 02/26 and knows she will be out of med. taking MS ER 15 mg BID but wears off early. using HM 2 mg tab- 2-3 mg Q 4 hr PRN- estimates approx 5 daily. Had endoscopy this AM and f/u appt with oncology sunday (2 days) P: Increase MSER to 15 mg TID script for #45-2 weeks HM 2 mg tabs dosing as above-# 75 2 week supply (expect she will use less of this with the increase in the MSER appt scheduled for 02/26 at 11AM scripts will be at oncology customer success intern for case picker Gem Pinzon MD February 14, 2017 14:25
[2017-02-16] MEDS ORDERED: [UNRECOGNIZED DRUG - OTHER] PO (12:27)
[2017-02-16] MEDS ORDERED: DOCU-41 PO (12:27)
[2017-02-16] MEDS ORDERED: MORP15TA PO (12:27)
[2017-02-16] MEDS ORDERED: METF500T4 PO (12:27)
[2017-02-16] MEDS ORDERED: MULT-1018 PO (12:28)
[2017-03-23] MEDS ORDERED: MS30TCR PO (11:58)
[2017-03-23] MEDS ORDERED: HYDR2TAB27 PO (11:58)
[2017-03-23] MEDS ORDERED: CARV25TA PO (11:58)
[2017-03-28] MEDS ORDERED: SENN-133 PO (09:37)
== END 2017-02-12 15:34 | disposition home or self-care (01) | DRG 436 ==
LOC: SED 09:40 → OSC 15:39
PROVIDERS: ADMIT Hospitalist; ATTEND Hospitalist
DX: C25.1 Malignant neoplasm of body of pancreas (principal); N39.0 Urinary tract infection, site not specified; E22.2 Syndrome of inappropriate secretion of antidiuretic hormone; E83.52 Hypercalcemia; I10 Essential (primary) hypertension; E78.5 Hyperlipidemia, unspecified; E87.6 Hypokalemia; E86.0 Dehydration; E11.65 Type 2 diabetes mellitus with hyperglycemia; B96.20 Unspecified Escherichia coli [E. coli] as the cause of diseases classified elsewhere; Z86.718 Personal history of other venous thrombosis and embolism; Z79.82 Long term (current) use of aspirin

== ENCOUNTER 2017-02-14 07:45 | Day surgery (SDC) | payer MEDICARE ==
[~2017-02-14] VITALS: Ht 162.6 cm; Wt 65.0 kg
[~2017-02-14 07:45] MED LIST: AMLO2.5T PO; AMOX1TAB11 PO; ASPI-973 PO; BENA40TA2 PO; CARV12.5 PO; HYDR2TAB27 PO; LIP40 PO; METF1000 PO; MORP-32 PO; POLY17PO6 PO; SENN-133 PO
[2017-02-14] MEDS ORDERED: Propofol 10,000 mCg/mL 20 mL Inj ONE (07:46)
[2017-02-14] MEDS ORDERED: Ketamine 10 mg/mL 20 mL Inj ONE (07:46)
[2017-02-14] MEDS ORDERED: fentaNYL-PF 50 mCg/mL 2 mL Inj ONE (07:46)
[2017-02-14 08:19] VITALS: BP 158/87; PULSE 76; RESP 14; O2SAT 99
[2017-02-14] MEDS ORDERED: Lactated Ringer's 1,000 ML IV ONE (08:31)
[2017-02-14 10:01] VITALS: BP 145/82; PULSE 97; RESP 16; O2SAT 99
[2017-02-14 10:11] VITALS: BP 152/77; PULSE 71; RESP 16; O2SAT 99
[2017-02-14 10:21] VITALS: BP 172/81; PULSE 73; RESP 16; O2SAT 100
--- NOTE | 2017-02-16 00:13 | ENDO ---
[address] [address] ENDOSCOPY PROCEDURE PATIENT: LANEY ANNA : 1940 MR#: [id number] ADMIT: 02/14/2017 JOB ID: [id number] DATE OF PROCEDURE: PROCEDURE: Endoscopic ultrasound report. INDICATION: Pancreatic mass that was recently recent seen on CT scan when she presented to the emergency department with epigastric pain. She had a CT scan done on February 09, 2017, with showed a mass in the proximal portion of the pancreatic body it with involvement of the superior mesenteric vein. Also noted on CT scan was celiac involvement with a periceliac lymph node. ANESTHESIA: Please see anesthesia report for details regarding ASA classification, Mallampati score, and medications. INSTRUMENT USED: [id number] linear echoendoscope. PROCEDURE DETAILS: After informed consent was obtained, the patient was brought into the GI suite, where she was placed on oxygen via nasal cannula and monitored with continuous pulse oximeter, telemetry, and blood pressure monitoring. A time-out was performed. Then, she was placed in the left lateral decubitus position and a bite block was placed. Medications were then administered for sedation. The linear echoendoscope was then introduced through the bite block and advanced without difficulty to the second portion of the duodenum. Limited luminal views to second portion of duodenum were unremarkable. Ultrasound images demonstrated the followin. In the proximal gastric body there was a 2.9 cm x 2.6 cm hypoechoic irregular lesion. Using a InnoCyte 22-gauge core needle three passes were made into the mass and then given to the onsite pathologist. 2. At celiac access there was an approximately 1.5 cm hypoechoic well-circumscribed lesion consistent with a lymph node. 3. The tumor appeared to be involving the superior mesenteric vein. 4. The superior mesenteric artery was seen and flow was present. 5. The portal vein flow was present. 6. The bile duct appeared to be normal in course and caliber. 7. In the left lobe of the liver there did not appear to be any evidence of metastatic disease. INCOMPLETE DICTATION: Dictation ends here. MTDD
--- NOTE | 2017-02-16 00:25 | ENDO ---
[address] [address] ENDOSCOPY PROCEDURE PATIENT: LANEY ANNA : 1940 MR#: [id number] ADMIT: 02/14/2017 JOB ID: [id number] DATE OF PROCEDURE: 02/14/2017 PROCEDURE: Endoscopic ultrasound report. INDICATION: A 76-year-old woman who presented with a two month history of epigastric pain and weight loss. Subsequent CT imaging of the abdomen and pelvis performed February 09, 2017, revealed a mass in the proximal gastric body which appeared to be involving the superior mesenteric vein. There appeared to be locally advanced disease as there was a lymph node involving the celiac axis. ANESTHESIA: Patient's ASA classification, Mallampati score and medications as per anesthesia report. INSTRUMENT USED: [id number] linear echoendoscope. PROCEDURE DETAILS: After informed consent was obtained, the patient was brought to the GI suite, where she was placed on oxygen via nasal cannula and monitored with continuous pulse oximeter, telemetry, and blood pressure monitoring. A time-out was performed. Then, she was placed in the left lateral decubitus position and a bite block was placed. Medications were then administered for sedation. The linear echoendoscope was then introduced through the bite block and advanced without difficulty to the second portion of the duodenum. Limited luminal views of the second portion of the duodenum were unremarkable. Ultrasound imaging demonstrated the followin. There appeared to be a 2.9 x 2.6 cm irregular hypoechoic lesion in the proximal pancreatic body. The mass appeared to be invading the superior mesenteric vein. 2. The pancreatic duct distal to the tumor was dilated in the body and tail of the pancreas. The common bile duct appeared to be normal in course and caliber. 3. Flow was seen in the portal vein and superior mesenteric artery. 4. There was an approximately 1.5 cm x 2 cm lymph node at the celiac axis. 5. Using a JRapid 22-gauge core needle, three passes were made into the pancreatic mass. Specimen was sent to pathology. 6. The left adrenal vein was identified and appeared unremarkable. 7. Visualized portions of the left kidney and spleen also were unremarkable. IMPRESSION: Pancreatic mass involving the proximal body of the pancreas with involvement of the superior mesenteric vein and siddhartha involvement in the celiac axis. I believe this represents T3 N1 staging for this suspected pancreatic cancer. RECOMMENDATIONS: 1. Await pathology results. 2. Follow up with Oncology as scheduled. COMPLICATIONS: None. ESTIMATED BLOOD LOSS: Less than 5 mL. MTDD
[2017-02-16] MEDS ORDERED: DOCU-41 PO (12:27)
[2017-02-16] MEDS ORDERED: METF500T4 PO (12:27)
[2017-02-16] MEDS ORDERED: [UNRECOGNIZED DRUG - OTHER] PO (12:27)
[2017-02-16] MEDS ORDERED: MORP15TA PO (12:27)
[2017-02-16] MEDS ORDERED: MULT-1018 PO (12:28)
[2017-03-23] MEDS ORDERED: HYDR2TAB27 PO (11:58)
[2017-03-23] MEDS ORDERED: CARV25TA PO (11:58)
[2017-03-23] MEDS ORDERED: MS30TCR PO (11:58)
[2017-03-28] MEDS ORDERED: SENN-133 PO (09:37)
== END 2017-02-14 23:59 | disposition home or self-care (01) ==
LOC: END 07:45
PROVIDERS: ATTEND Internal Medicine Gastroenterology
DX: K86.89 Other specified diseases of pancreas (principal)
CPT/HCPCS: 43238; J3010; J7120

== ENCOUNTER 2017-02-22 11:57 | Day surgery (SDC) | payer MEDICARE ==
[~2017-02-22] VITALS: Ht 162.6 cm; Wt 63.4 kg
[2017-02-22] VITALS (7 sets, daily range): BP systolic 127–174; BP diastolic 65–88; PULSE 80–89; RESP 14–18; O2SAT 96–100
[~2017-02-22 11:57] MED LIST changes: +CeFAZolin Inj 2,000 MG in Dextrose 5% 50 ML IV SCH; +DOCU-41 PO; +Lactated Ringer's 1,000 ML IV SCH; -METF1000 PO; +METF500T4 PO; -MORP-32 PO; +MORP15TA PO; +MULT-1018 PO; -SENN-133 PO; +[UNRECOGNIZED DRUG - OTHER] PO
[2017-02-22] MEDS ORDERED: Dexamethasone 4 mg/mL Inj ONE (11:58)
[2017-02-22] MEDS ORDERED: MetoCLOpramide 5 mg/mL 2 mL Inj ONE (11:58)
[2017-02-22] MEDS ORDERED: fentaNYL-PF 50 mCg/mL 2 mL Inj ONE (11:58)
[2017-02-22] MEDS ORDERED: Propofol 10,000 mCg/mL 20 mL Inj ONE (11:58)
[2017-02-22] MEDS ORDERED: Ondansetron 2 mg/mL 2 mL Inj ONE (11:58)
[2017-02-22 12:31] LABS: APPEARANCE,URINE HAZY (CLEAR,HAZY); COLOR,URINE YELLOW (YELLOW); OCCULT BLOOD,URINE NEGATIVE (NEGATIVE); PH,URINE 6.5 (5.0-8.0); UROBILINOGEN,URINE NORMAL (NORMAL)
[2017-02-22] MEDS ORDERED: CeFAZolin Inj 2 gm / 50mL D5W IV ONE (12:45)
[2017-02-22] MEDS ORDERED: Lactated Ringer's 1,000 ML IV ONE (13:09)
[2017-02-22] MEDS: fentaNYL-PF 50 mCg/mL 2 mL Inj ONE ×2 (14:30→14:49)
[2017-02-22] MEDS ORDERED: Lactated Ringer's 1,000 ML IV SCH (15:20)
[2017-02-22] MEDS ORDERED: Ondansetron 2 mg/mL 2 mL Inj IVPUSH PRN (15:20)
[2017-02-22] MEDS ORDERED: Phenylephrine 10,000 mCg/mL Inj IVPUSH PRN (15:20)
[2017-02-22] MEDS ORDERED: fentaNYL-PF 50 mCg/mL 2 mL Inj IVPUSH PRN (15:20)
[2017-02-22] MEDS ORDERED: MetoCLOpramide 5 mg/mL 2 mL Inj IVPUSH PRN (15:20)
[2017-02-22] MEDS ORDERED: EPHEDrine Sulfate 50 mg/mL Inj IVPUSH PRN (15:20)
[2017-02-22] MEDS ORDERED: Labetalol 5 mg/mL 4 mL Inj IV PRN (15:20)
[2017-02-22] MEDS ORDERED: Lactated Ringer's 500 ML IV PRN (15:20)
[2017-02-22] MEDS ORDERED: Bupivacaine-MPF 0.25%/EPI 30 mL Inj INFILTRATE ONE (15:31)
--- NOTE | 2017-02-22 15:40 | DRSVH ---
PROCEDURE: X-RAY CHEST ONE VIEW, PORTABLE ([id number]) INDICATIONS: PORT TECHNIQUE: One view of the chest was acquired. COMPARISON: None. FINDINGS: Surgical changes and devices: Left-sided port placement with tip overlying the mid SVC. Lungs and pleura: No pneumothorax. IMPRESSION: Limited exam for left-sided port placement with no apparent complication. Dictated by: Ge Causey M.D. on 02/22/2017 at 15:38 Approved by: Ge Causey M.D. on 02/22/2017 at 15:39
--- NOTE | 2017-02-22 16:05 | DRSVH ---
PROCEDURE: X-RAY CHEST ONE VIEW, PORTABLE ([id number]) INDICATIONS: PORT TECHNIQUE: One view of the chest was acquired. COMPARISON: None. FINDINGS: Surgical changes and devices: Left-sided port with tip overlying the mid SVC. Lungs and pleura: No pleural effusions or pneumothorax. There is slight blunting of the left costoph renic angle which may represent focal atelectasis or trace effusion. Mediastinum: Mediastinal contours appear normal. Heart size is normal. Bones and chest wall: No suspicious bony lesions. Overlying soft tissues appear unremarkable. IMPRESSION: 1. Left sided port placement with no apparent complication. 2. Minimal left basilar atelectasis or trace effusion. Dictated by: Ge Causey M.D. on 02/22/2017 at 16:02 Approved by: Ge Causey M.D. on 02/22/2017 at 16:04
--- NOTE | 2017-02-22 23:22 | OP ---
[address] [address] OPERATIVE REPORT PATIENT: LANEY ANNA : 1940 MR#: [id number] ADMIT: 02/22/2017 JOB ID: [id number] DATE OF SURGERY: 02/22/2017 ANESTHESIA: General. PREOPERATIVE DIAGNOSIS(ES): Pancreatic cancer. POSTOPERATIVE DIAGNOSIS(ES): Pancreatic cancer. OPERATIVE PROCEDURE: Insertion of left subclavian vein Port-A-Cath using fluoroscopy with interpretation for guidance. SURGEON: Dr. Armaan Hayward. AUTOMATION TESTER: Refugio Be PA-C. COMPLICATIONS: None. ESTIMATED BLOOD LOSS: Less than 5 mL. CONDITION: Satisfactory. SPECIMEN: None. FINDINGS: A low-profile port was inserted in left subclavian vein without complication. INDICATIONS/SIGNIFICANT HISTORY: The patient is a 76-year-old female, recently diagnosed with locally advanced pancreatic cancer who is scheduled to begin neoadjuvant chemotherapy. OPERATIVE TECHNIQUE: The patient was taken to the operating room and placed in supine position. General anesthesia was administered and preoperative antibiotics were given. The neck and chest were prepped and draped in a standard surgical fashion and a procedural pause was performed. The left subclavian vein was accessed with the first pass of a finder needle and a wire inserted into the vein. Position was confirmed using fluoroscopy. The wire was seen to course through the heart down into the inferior vena cava. Local anesthetic was injected and a subcutaneous pocket was created in the left anterior chest. A low-profile port was secured there using three 2-0 Prolene sutures. The catheter was tunneled up to the wire exit point and inserted into the vein using the Seldinger technique under fluoroscopic visualization. Good final position was confirmed. The port aspirated and flushed nicely. This was locked with heparin. The skin was closed using 3-0 Vicryl deep dermals followed by a running 4-0 Monocryl. Dermabond was applied. The entire procedure was well tolerated without complication.
--- NOTE | 2017-02-23 09:59 | PCM.ANEP1 ---
Post Anesthesia Phase 1 PACU Phase 1 Assessment Anesthetic Administered: GA Level of Alertness: Awake, talking PORTER's with Equal Strength: Yes Pain: No Nausea or Vomiting: No Cardiovascular Function and Hy: No Oxygen Delivery: Room Air Lungs: Clear to Auscultation, Normal Air Movement Dermatome Level: Full Sensation Complications: No Follow up Care: No Arsen Pino MD February 23, 2017 09:59
--- NOTE | 2017-02-23 09:59 | PCM.HPANE ---
Patient Data Surgeon Admitting Provider: Attending Provider:Armaan Hayward MD Primary Care Physician:Richie Canas MD Other Provider:[facility] Reason for Visit Pancreatic Cancer Ht/WT & BMI Height (Feet): 5 Height (Inches): 4.00 Weight (Kilograms): 66.680 Body Mass Index 25.00 Allergies Coded Allergies: No Known Allergies (Verified Allergy, Unknown, 02/16/17) Past Anesthesia History Anesthesia History: Denies:: Abnormal Airway, Anesthesia Reactions, Difficult Intubation, Fam Anesthesia Reaction, Fam Malignant Hypertherm, Malignant Hyperthermia Diabetes History Hx Diabetes?: Yes Type of Diabetes: Type II Glycemic Control: Oral Medication Current Bedside Blood Glucose: 141 MRSA MRSA: No Medications Blood Thinner: Aspirin Hypertension Medication: Yes Home Meds Incl Beta Edna: Yes Date Beta Edna Taken: February 22, 2017 Time Beta Edna Taken: 0600 Active Scripts Amoxicillin/Clav K 500-125 mg (Augmentin 500)1 Tab Tab1 Tablet PO BID #10 TABLET Prov:Radha Hillman DO 02/12/17 Hydromorphone (Dilaudid)2 Mg Tablet3 Mg PO Q4H PRN For Pain #40 TABLET Prov:Radha Hillman DO 02/12/17 Polyethylene Glycol 3350 (Miralax)17 Gm Powd.pack17 Gm PO DAILY PRN For Constipation 14 Days Prov:Radha Hillman DO 02/12/17 Reported Medications Multivitamin (Multi Vitamin Daily)1 Each Tablet1 Each PO DAILY Ref 0 02/16/17 [Gentle Laxative] No Conflict Check1-2 Tab PO PRN 02/16/17 Docusate Sodium (Colace)100 Mg Fdkiasd649-707 Mg PO PRN For Constipation Ref 0 02/16/17 Metformin 500 Mg [id number] Mg PO BID Ref 0 02/16/17 Morphine Sulfate 15 Mg Xmqlsd85 Mg PO TID 02/16/17 Aspirin 81 Mg [id number] Mg PO BID Ref 0 02/09/17 Atorvastatin (Lipitor)40 Mg Clwewh29 Mg PO DAILY Ref 0 02/09/17 Benazepril 40 Mg Hgnujk53 Mg PO DAILY 02/09/17 Amlodipine 2.5 Mg Tablet2.5 Mg PO DAILY Ref 0 02/09/17 Carvedilol (Coreg)12.5 Mg Bfrqca59.5 Mg PO BID Ref 0 02/09/17 Discontinued Scripts Morphine Sulfate ER 15 Mg Ejumvo49 Mg PO BID 14 Days Prov:Radha Hillman DO 02/12/17 Metformin (Glucophage)1,000 Mg Tablet1,000 Mg PO BID 14 Days Ref 0 Prov:Radha Hillman DO 02/12/17 Sennosides (Senna)8.6 Mg Mfhlas48.2 Mg PO BID PRN For Constipation 14 Days Prov:Radha Hillman DO 02/12/17 History History of ENT Problems?: No HEENT History: Denies:: Abnormal Airway Cataracts Difficult Intubation Dysphagia Hearing Problem Sinus Problem TMJ Denture Type: None Teeth Condition: Within Normal Limits Hx of Heart Problems?: No Cardiovascular History: Positive for:: Hypertension Denies:: Congestive Heart Failure Hx of Respiratory Problem?: No Respiratory History: Denies:: Oxygen Administration Tuberculosis Use of C-PAP Machine Hx Neurologic Problems?: No Neurological History: Denies:: CVA Hx of GI Problems?: Yes Other GI Pertinent History: newly diagnosed pancreatic cancer- current admission problem Hx of Problems?: No Genitourinary History: Denies:: Kidney Stones Urinary Tract Infection Female Hx: Denies:: Currently (hysterectomy) Endometriosis Pelvic Inflammatory Problems with Breasts? Skin History: Denies:: History Skin Disorders? Pressure Ulcers Hx Musculoskeletal Problems?: No Hx of Psycho/Social Problems?: No Hx Surgeries?: Yes (VAG HYST, BTL, T&A) Hx Any Other Health Problems?: Yes Other History: Positive for:: Cancer (pancreatic) Hospitalization Denies:: Thyroid Disease History Blood Transfusions: Denies:: Blood Transfusions Hx Diabetes: YesBedside Blood Glucose: 141 Hx Alcohol Use: Yes (RARELY)Hx Substance Use: No Smoking Status: Never Smoker Stop/Bang S-Snoring: Do You Snore Loudly: No T-Tired: feel tired, fatigued: No O-Obsered: Observed not breath: No P-Blood Pressure: treated: Yes B- Body Mass Index > 35 kg/m2: No A- Age over 50: Yes N- Neck Large Circumference: No G- Gender Male: No CHRISTIAN Total Score: 2 Risk Assessment Category Category 1A: Patient has history of documented sleep apnea, and HAS NOT received any narcotic, sedative or anesthesia administration during this stay. Category 1B: Patient has history of documented sleep apnea, and HAS received any narcotic , sedative or anesthesia administration during this stay Category 2: Patient has SUSPECTED Obstructive Sleep Apnea, and HAS received any narcotic , sedative or anesthesia administration during this stay. Category 3: Patient has SUSPECTED Obstructive Sleep Apnea and HAS NOT received narcotic, sedative or anesthesia administration during this stay. Category 4: Outpatient in Procedural Areas with known sleep apnea or who screen positive for High Risk via the STOP/BANG questionnaire. Exam Exam Vital Signs Vital Signs Date Time Temp Pulse Resp B/P Pulse Ox O2 Delivery O2 Flow Rate FiO2 02/22/17 13:12 36.1 82 14 174/88 100 Room Air General Appearance: Alert, Oriented X3, Cooperative, No Acute Distress HEENT/AIRWAY: MP 2, Neck Movement (FROM), Mouth Opening (3 FBMO) Lungs: Normal Air Movement Heart: Regular Rate/Rhythm Meds/Labs/Diagnostics Admission Meds Current Medications Lactated Ringer's (Lr) 1,000 ml @ ud STK-MED ONCE IV Last administered on 02/22t 13:09; Start 02/22/17 at 13:09; Stop 02/22/17 at 13:10; Status DC Bedside Blood Glucose: 141 Labs Test 02/22/17 12:14 Urine Color Yellow (YELLOW) Urine Appearance Hazy (CLEAR,HAZY) Urine pH 6.5 (5.0-8.0) Urine Specific [place] 1.010 (1.003-1.035) Urine Protein Negativemg/dL (NEG,TRACE) Urine Glucose (UA) Negativemg/dL (NEGATIVE) Urine Ketones Negativemg/dL (NEGATIVE) Urine Occult Blood Negative (NEGATIVE) Urine Nitrite Negative (NEGATIVE) Urine Bilirubin Negative (NEGATIVE) Urine Urobilinogen Normalmg/dL (NORMAL) Urine Leukocyte Esterase Trace (NEGATIVE) Urine RBC 0-2/hpf (0-2) Urine WBC 0-5/hpf (0-5) Urine Epithelial Cells Occasional/hpf (NONE-MOD) Urine Crystals None seen (NONE SEEN) Urine Bacteria None/hpf (NONE-FEW) Urine Hyaline Casts Occasional/lpf (NONE) Urine Granular Casts None seen (NONE SEEN) Urine Waxy Casts None seen (NONE SEEN) Urine Red Blood Cell Casts None seen (NONE SEEN) Urine White Blood Cell Casts None seen (NONE SEEN) Urine Mucus Present (None Seen) Urine Trichomonas None seen (NONE SEEN) Urine Yeast None (NONE SEEN) Urinalysis Comment None Urine Culture Reflexed Indicated Plan Impression Patient chart reviewed, patient interviewed and anesthestic plan with risks, benefits, and alternatives discussed, and informed consent obtained. NPO per Anesth. Guidelines: Yes ASA Physical Status: ASA3 Severe Disease (Pancreatic Cancer) Anesthetic Plan: GA Bene/Risks/Altern/Consents: Yes HP Complete Prior to Induction: Yes Arsen Pino MD February 22, 2017 13:32
[2017-03-23] MEDS ORDERED: MS30TCR PO (11:58)
[2017-03-23] MEDS ORDERED: HYDR2TAB27 PO (11:58)
[2017-03-23] MEDS ORDERED: CARV25TA PO (11:58)
[2017-03-28] MEDS ORDERED: SENN-133 PO (09:37)
== END 2017-02-22 23:59 | disposition home or self-care (01) ==
LOC: SAS 11:57
PROVIDERS: ATTEND General Practice
DX: C25.9 Malignant neoplasm of pancreas, unspecified (principal); K86.9 Disease of pancreas, unspecified; I10 Essential (primary) hypertension; E78.5 Hyperlipidemia, unspecified; E11.9 Type 2 diabetes mellitus without complications; N28.9 Disorder of kidney and ureter, unspecified; Z90.710 Acquired absence of both cervix and uterus; Z79.82 Long term (current) use of aspirin; Z79.84 Long term (current) use of oral hypoglycemic drugs
CPT/HCPCS: 36561; 71010; 77001; 81000; 87086; 87088; C1788; J1100; J1885; J2405; J2765; J3010; J7120